=== PATIENT | male | born 1940 | race Caucasian/White ===

== ENCOUNTER → 2016-10-08 | Outpatient (CLI) | payer OTHER ==
[~2016-10-08] MED LIST: ASPEC81 PO; ASPI81TA21 PO; CLOP1TAB15 PO; CRG125 PO; DUTACAP PO; JAYLN PO; LISI-729 PO; LISI10TA PO; LPT40 PO; MULT-506 PO; NITR0.1S PO; NITRO SL; NTRGSL/4 UT; POLY1POW2 PO; POLY335019 PO; PROB1CAP54 PO
--- NOTE | 2016-10-08 10:18 | DIAGNOSTIC IMAGING REPORT ---
ULTRASOUND OF THE CAROTID ARTERIES CLINICAL HISTORY: Carotid artery stenosis. COMPARISON STUDY: Carotid artery ultrasound dated 10/02/2015. CT angiogram of the neck dated 02/08/2016. TECHNIQUE: Real-time, grayscale, and color Doppler sonography of the carotid arteries is performed. Images are reviewed in the transverse and longitudinal planes. FINDINGS: Blood pressure in the right arm measures 113/72 and blood pressure in the left arm measures 127/72. The right carotid arterial system and the left common carotid artery are widely patent and demonstrate antegrade flow. 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 There is moderate echogenic atherosclerotic plaque seen in the right carotid bulb. Normal doppler arterial waveforms are seen throughout. Velocity measurements are listed below. Common carotid peak systolic velocity (cm/sec): RIGHT: 94 LEFT: 69 ICA proximal peak systolic velocity (cm/sec): RIGHT: 71 LEFT: XX ICA mid peak systolic velocity (cm/sec): RIGHT: 88 LEFT: XX ICA distal peak systolic velocity (cm/sec): RIGHT: 78 LEFT: XX ICA/CC peak systolic ratio: RIGHT: 0.9 LEFT: XX Antegrade flow was shown in the vertebral arteries. The external carotid arteries are patent. Elevated velocities within the right external carotid artery suggest some degree of stenosis. IMPRESSION: 1. 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 2. There is no sonographic evidence of hemodynamically significant stenosis in the right carotid arterial system. 3. Antegrade flow is shown in the vertebral arteries. Electronically signed by: Yrn Obrien M.D. 10/08/2016 10:15 AM Dictated Date/Time: 10/08/2016 10:12 AM
== END | disposition home or self-care (01) ==
LOC: C.ULTR 09:27
PROVIDERS: ATTEND Physician Assistant
DX: I65.22 Occlusion and stenosis of left carotid artery (principal)

== ENCOUNTER → 2016-12-02 | Outpatient (CLI) | payer OTHER ==
[2016-12-02 12:15] LABS: BASO ABS # 0.06 K/uL (0-0.2); COMPLETE YES; HEMATOCRIT 41.2 % (42-52); IG% 0.5 %; LYMPH % 20.4 %; LYMPH ABS # 1.23 K/uL (1.2-3.4); MEAN CORPUSCULAR HEMOGLOBIN 33.4 pg (25-34); MEAN CORPUSCULAR HGB CONC 33.7 g/dl (32-36); MEAN PLATELET VOLUME 10.1 fL (7.4-10.4); MONO % 8.6 %; NEUT % 63.5 %; PLATELET COUNT 162 K/uL (130-400); RED BLOOD COUNT 4.16 M/uL (4.7-6.1); WHITE BLOOD COUNT 6.02 K/uL (4.8-10.8)
[2016-12-02 12:59] LABS: ALT/SGPT 30 U/L (12-78); BLOOD UREA NITROGEN 18 mg/dl (7-18); BUN/CREATININE RATIO 13.1 (10-20); CARBON DIOXIDE 27 mmol/L (21-32); CHLORIDE 104 mmol/L (98-107); CHOLESTEROL 145 mg/dl (0-200); GLUCOSE 90 mg/dl (70-99); POTASSIUM 4.6 mmol/L (3.5-5.1); SODIUM 139 mmol/L (136-145); TRIGLYCERIDES 98 mg/dl (0-150); VERY LOW DENSITY LIPOPROT CALC 20 mg/dl
[2016-12-02 13:02] LABS: ALKALINE PHOSPHATASE 53 U/L (45-117); AST/SGOT 20 U/L (15-37); CHOLESTEROL/HDL RATIO 3.5; HDL CHOLESTEROL 41 mg/dl; LDL CHOLESTEROL CALCULATED 84 mg/dl
[2016-12-02 13:14] LABS: CALCIUM 9.4 mg/dl (8.5-10.1)
== END ==
LOC: C.LABBFT 07:46
PROVIDERS: ATTEND Internal Medicine
DX: I25.10 Atherosclerotic heart disease of native coronary artery without angina pectoris (principal)

== ENCOUNTER 2017-01-30 20:52 | Inpatient (IN) | payer OTHER ==
[~2017-01-30] VITALS: Ht 177.8 cm; Wt 80.2 kg
[~2017-01-30 20:52] MED LIST changes: -ASPI81TA21 PO; -CLOP1TAB15 PO; -DUTACAP PO; -LISI-729 PO; -MULT-506 PO; -NITR0.1S PO; -NTRGSL/4 UT; -POLY335019 PO; -PROB1CAP54 PO
[2017-01-30] MEDS ORDERED: SODIUM CHLORIDE 0.9% 1000ML 1,000 ML IV STA (21:09)
[2017-01-30] MEDS ORDERED: SODIUM CHLORIDE 0.9% 1000ML 250 ML IV STA (21:09)
--- NOTE | 2017-01-30 21:14 | EMERGENCY ROOM VISIT NOTE ---
History Report prepared by Andie: Stephanie Moran Under the Supervision of: Dr. Royce Gurrola M.D. First contact with patient: 20:58 Chief Complaint: CHEST PAIN Stated Complaint: CHEST PAIN- HX OF MYOCARDIAL INF AND STROKE History of Present Illness The patient is a 77 year old male who presents to the Emergency Room with complaints of persistent midsternal chest pain that started approximately 2 hours [employer]. He is accompanied by his . He rates his discomfort as a 10/10. He took 1 Nitro prior to arrival, but states it has provided only minimal relief. His reports his blood pressure was elevated when she checked. The patient denies any shortness of breath or nausea. 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 He reports the Vicodin has not helped his pain, and his level of discomfort may be affecting his blood pressure. The patient has a defibrillator and pacemaker. He has a history of 2 previous GA's and a TIA. He denies his defibrillator firing recently. He takes daily Aspirin and Plavix. Source of History: patient, spouse/significant other () Onset: 2 hours [employer] Position: chest, other Symptom Intensity: 10/10 Timing: other (persistent) Modifying Factors (Relieving): other (Nitroglycerin) Associated Symptoms: No SOB, No nausea Review of Systems See HPI for pertinent positives & negatives. A total of 10 systems reviewed and were otherwise negative. Past Medical & Surgical Medical Problems: (1) Ischemic cardiomyopathy (2) Left Ventricular Thrombus Old medical records were reviewed. Nurse's notes were reviewed and I agree with. Family History No pertinent family history Social History Smoking Status: Never Smoker Alcohol Use: none Drug Use: none Marital Status: Housing Status: lives with family Occupation Status: retired, other Current/Historical Medications Scheduled Aspirin Enteric Coated (Ecotrin Or Generic), 81 MG PO DAILY Atorvastatin (Atorvastatin Calcium), 60 MG PO HS Carvedilol (Carvedilol), 12.5 MG PO BID Clopidogrel (Plavix), 75 MG PO QPM Dutasteride-Tamsulosin Hcl (Imelda), 1 CAP PO DAILY Lisinopril (Prinivil), 2.5 MG PO QAM Multivitamin (Multivitamin), 1 TAB PO DAILY Nitroglycerin (Nitrostat), 0.4 MG UT PRN Polyethylene Glycol 3350 (Miralax), 17 GM PO DAILY Probiotic Product (Acidophilus), 1 CAP PO DAILY Allergies Coded Allergies: No Known Allergies (Unverified , 01/30/17) Physical Exam Vital Signs Date Time Temp Pulse Resp B/P (MAP) Pulse Ox O2 Delivery O2 Flow Rate FiO2 01/30/17 23:41 68 18 114/71 88 Room Air 01/30/17 23:41 96 Nasal Cannula 2.0 01/30/17 22:23 141/80 01/30/17 22:22 83 14 01/30/17 22:11 76 01/30/17 21:52 76 19 91 01/30/17 21:41 92 Room Air 01/30/17 21:40 75 01/30/17 21:29 156/91 01/30/17 20:53 36.7 92 18 150/89 92 Room Air Physical Exam General: The patient is a non-ill appearing older male. Well developed, well nourished in no acute distress, breathing comfortably on room air. Normal speech HEENT: Normal cephalic atraumatic. Intact dressing around head from recent skin surgery. Pupils are equal round and reactive to light. Sclerae are anicteric. Extraocular movements are intact. Oropharynx is pink with moist mucous membranes. No swelling of the mouth lips or tongue. Neck: Supple with a midline trachea. No meningeal signs or stiffness, no JVD or bruits. No Stridor. Chest: Clear to auscultation bilaterally. No wheezes or rhonchi. No increased work of breathing. Heart: regular rate and rhythm. Abdomen: Soft nontender, nondistended without rebound guarding or rigidity. Extremities: No cyanosis clubbing or edema. No calf tenderness or assymetry Spine/Back. Non tender to palpation. No CVA tenderness Skin: Good turgor without rashes. Neurologic exam: Cranial nerves two through 12 are intact. Motor and sensation are intact and symmetrical throughout. Medical Decision & Procedures ER Provider Diagnostic Interpretation: Radiology results as stated below per my review and radiologist interpretation: CHEST ONE VIEW PORTABLE CLINICAL HISTORY: Atypical chest pain COMPARISON STUDY: 02/08/2016 FINDINGS: The cardiac and mediastinal contours remain stable. There is a left subclavian dual-chamber pacer/defibrillator. There is calcified right midlung zone granuloma. There is no failure. There is no focal pulmonary consolidation. There are no pleural effusions. IMPRESSION: No active disease in the chest. Electronically signed by: Lei Lebron M.D. 01/30/2017 9:26 PM Laboratory Results 01/30/17 21:30 Red Blood Count 4.10, Mean Corpuscular Volume 98.0, Mean Corpuscular Hemoglobin 33.4, Mean Corpuscular Hemoglobin Concent 34.1, Mean Platelet Volume 9.4, Neutrophils (%) (Auto) 69.2, Lymphocytes (%) (Auto) 19.5, Monocytes (%) (Auto) 7.1, Eosinophils (%) (Auto) 3.5, Basophils (%) (Auto) 0.4, Neutrophils # (Auto) 5.30, Lymphocytes # (Auto) 1.49, Monocytes # (Auto) 0.54, Eosinophils # (Auto) 0.27, Basophils # (Auto) 0.03 01/30/17 21:30 Test 01/30/17 21:30 01/30/17 21:48 White Blood Count 7.65 K/uL (4.8-10.8) Red Blood Count 4.10 M/uL (4.7-6.1) Hemoglobin 13.7 g/dL (14.0-18.0) Hematocrit 40.2 % (42-52) Mean Corpuscular Volume 98.0 fL (80-100) Mean Corpuscular Hemoglobin 33.4 pg (25-34) Mean Corpuscular Hemoglobin Concent 34.1 g/dl (32-36) Platelet Count 145 K/uL (130-400) Mean Platelet Volume 9.4 fL (7.4-10.4) Neutrophils (%) (Auto) 69.2 % Lymphocytes (%) (Auto) 19.5 % Monocytes (%) (Auto) 7.1 % Eosinophils (%) (Auto) 3.5 % Basophils (%) (Auto) 0.4 % Neutrophils # (Auto) 5.30 K/uL (1.4-6.5) Lymphocytes # (Auto) 1.49 K/uL (1.2-3.4) Monocytes # (Auto) 0.54 K/uL (0.11-0.59) Eosinophils # (Auto) 0.27 K/uL (0-0.5) Basophils # (Auto) 0.03 K/uL (0-0.2) RDW Standard Deviation 45.5 fL (36.4-46.3) RDW Coefficient of Variation 12.7 % (11.5-14.5) Immature Granulocyte % (Auto) 0.3 % Immature Granulocyte # (Auto) 0.02 K/uL (0.00-0.02) Prothrombin Time 10.9 SECONDS (9.0-12.0) Prothromb Time International Ratio 1.0 (0.9-1.1) Activated Partial Thromboplast Time 29.3 SECONDS (21.0-31.0) Partial Thromboplastin Ratio 1.1 Anion Gap 3.0 mmol/L (3-11) Est Creatinine Clear Calc Drug Dose 43.3 ml/min Estimated GFR () 51.7 Estimated GFR (Non- 44.6 BUN/Creatinine Ratio 14.6 (10-20) Calcium Level 8.9 mg/dl (8.5-10.1) Total Bilirubin 0.6 mg/dl (0.2-1) Direct Bilirubin 0.1 mg/dl (0-0.2) Aspartate Amino Transf (AST/SGOT) 54 U/L (15-37) Alanine Aminotransferase (ALT/SGPT) 44 U/L (12-78) Alkaline Phosphatase 56 U/L (45-117) Total Creatine Kinase 141 U/L (39-308) Creatine Kinase MB 2.3 ng/ml (0.5-3.6) Creatine Kinase MB Ratio 1.6 (0-3.0) Troponin I 0.026 ng/ml (0-0.045) Total Protein 7.5 gm/dl (6.4-8.2) Albumin 3.6 gm/dl (3.4-5.0) Lipase 4065 U/L (73-393) Bedside Troponin I < 0.030 ng/ml (0-0.045) UH-Udc-B-Type Natriuretic Peptide 711 pg/ml (0-1800) Laboratory studies as stated above per my review. Medications Administered Medications (Trade) Dose Ordered Sig/Mihaela Route Start Time Stop Time Status Last Admin Dose Admin Sodium Chloride 250 ml @ 999 mls/hr Q16M STAT IV 01/30/17 21:09 01/30/17 21:24 DC 01/30/17 21:54 999 MLS/HR Sodium Chloride 1,000 ml @ 100 mls/hr Q10H STAT IV 01/30/17 21:09 01/31/17 07:08 01/30/17 21:53 100 MLS/HR Ondansetron HCl (Zofran Inj) 4 mg NOW STAT IV 01/30/17 22:14 01/30/17 22:15 DC 01/30/17 22:32 4 MG Morphine Sulfate (MoRPHine SULFATE INJ) 2 mg NOW STAT IV 01/30/17 22:14 01/30/17 22:15 DC 01/30/17 22:32 2 MG Morphine Sulfate (MoRPHine SULFATE INJ) 2 mg NOW STAT IV 01/30/17 23:02 01/30/17 23:03 DC 01/30/17 23:08 2 MG ECG Indication: chest pain Rate (beats per minute): 83 Rhythm: normal sinus Findings: other (non-specific T wave abnormalities laterally) Change: no significant change (No significant change when compared to EKG of February 08, 2016) Change: 2nd EKG: Normal sinus rhythm, rate of 82, no acute ischemic changes, no ectopy. ED Course 2101: Past medical records reviewed. The patient was evaluated in room B6, and a complete history and physical examination were performed. 2108: NSS 1000 ml @ 100 mls/hr IV, NSS 250 ml @ 999 mls/hr IV. 2210: I reevaluated the patient. He states he had another episode of pain. I have ordered another EKG and some Zofran and pain medication. 2214: Morphine Sulfate 2 mg IV, Zofran 4 mg IV. 2302: Morphine Sulfate 2 mg IV. 2320: I reevaluated the patient. He is resting comfortably. I discussed his results and my recommendation he remain in the hospital for further evaluation and management and he verbalized complete understanding and agreement. 2340: I discussed the patients case with Dr. Schwarz, [facility] Hospitalist. The patient will be further evaluated. Medical Decision The differential diagnoses considered include ACS, arrhythmia, GERD, peptic ulcer disease and electrolyte or metabolic abnormalities. This patient comes in as described above he has lower chest/epigastric pain is not significantly reproducible he tender. It's been off-and-on and it sharp. He does have a history cardiac disease however has not had any symptoms like this with his cardiac issues in the past. He said he had back pain he does not have any back pain at present. He recently had melanoma surgery and is on Keflex and Vicodin which are the only new meds. IV access established, EKG was obtained. He tried nitroglycerin without much relief at home. EKG does not show any acute ischemic changes and no change compared to old. A second EKG was obtained and shows no chest change or progression of symptoms. His cardiac biomarkers are negative thus far. Chest x-ray was unremarkable is no free air. Lipase came back elevated in the 4000 range and apparently, he does have a pancreatitis. He does not drink his gallbladder from previously removed. It may be medication related. The patient did receive IV morphine twice while in the ER as well as IV Zofran and seems much more comfortable. He's also has ongoing pain from his surgery and his head for which she's been taking the Vicodin. The patient's does need to be admitted for further treatment and evaluation and bowel rest. He was gently hydrated in the ER and will be admitted to the [facility] physician group. Medication Reconcilliation Current Medication List: was personally reviewed by me Blood Pressure Screening Patient's blood pressure: Elevated blood pressure Blood pressure disposition: Elevated BP felt to be situational Consults Time Called: 2320 Consulting Physician: Dr. Schwarz, [facility] Hospitalist Returned Call: 2340 I discussed the patients case with Dr. Schwraz, [facility] Hospitalist. The patient will be further evaluated. Impression Primary Impression: Pancreatitis Additional Impressions: Precordial chest pain Epigastric abdominal pain Scribe Attestation The scribe's documentation has been prepared under my direction and personally reviewed by me in its entirety. I confirm that the note above accurately reflects all work, treatment, procedures, and medical decision making performed by me. Departure Information Dispostion Being Evaluated By Hospitalist Referrals Cleveland Blair M.D. (PCP) Patient Instructions My [facility] Problem Qualifiers
[2017-01-30] MEDS ORDERED: NITR0.4S76 PO (21:21)
[2017-01-30] MEDS ORDERED: DUTACAP PO (21:21)
[2017-01-30] MEDS ORDERED: CRG125 PO (21:21)
[2017-01-30] MEDS ORDERED: ASPI81TA21 PO (21:21)
[2017-01-30] MEDS ORDERED: LISI-729 PO (21:21)
[2017-01-30] MEDS ORDERED: POLY335019 PO (21:21)
[2017-01-30] MEDS ORDERED: CLOP1TAB15 PO (21:21)
[2017-01-30] MEDS ORDERED: NTRGSL/4 UT (21:22)
[2017-01-30] MEDS ORDERED: PROB1CAP54 PO (21:23)
[2017-01-30] MEDS ORDERED: MULT-506 PO (21:23)
--- NOTE | 2017-01-30 21:27 | DIAGNOSTIC IMAGING REPORT ---
CHEST ONE VIEW PORTABLE CLINICAL HISTORY: Atypical chest pain COMPARISON STUDY: 02/08/2016 FINDINGS: The cardiac and mediastinal contours remain stable. There is a left subclavian dual-chamber pacer/defibrillator. There is calcified right midlung zone granuloma. There is no failure. There is no focal pulmonary consolidation. There are no pleural effusions.[ IMPRESSION: No active disease in the chest. Electronically signed by: Lei Lebron M.D. 01/30/2017 9:26 PM Dictated Date/Time: 01/30/2017 9:25 PM
[2017-01-30 21:54] LABS: BASO % 0.4 %; BASO ABS # 0.03 K/uL (0-0.2); COMPLETE YES; EOS % 3.5 %; HEMATOCRIT 40.2 % (42-52); IG% 0.3 %; LYMPH % 19.5 %; LYMPH ABS # 1.49 K/uL (1.2-3.4); MEAN CORPUSCULAR HEMOGLOBIN 33.4 pg (25-34); MEAN CORPUSCULAR HGB CONC 34.1 g/dl (32-36); MEAN PLATELET VOLUME 9.4 fL (7.4-10.4); MONO % 7.1 %; NEUT % 69.2 %; PLATELET COUNT 145 K/uL (130-400); WHITE BLOOD COUNT 7.65 K/uL (4.8-10.8)
[2017-01-30 22:02] LABS: PARTIAL THROMBOPLASTIN RATIO 1.1; PROTHROMBIN TIME (PATIENT) 10.9 SECONDS (9.0-12.0)
[2017-01-30 22:07] LABS: BUN/CREATININE RATIO 14.6 (10-20); CALCIUM 8.9 mg/dl (8.5-10.1); CREATININE 1.5 mg/dl (0.60-1.40); POTASSIUM 4.2 mmol/L (3.5-5.1)
[2017-01-30 22:07] LABS: POINT OF CARE PRO-BNP 711 pg/ml (0-1800); POINT OF CARE TROPONIN I < 0.030 ng/ml (0-0.045)
[2017-01-30 22:13] LABS: CKMB/CK RATIO 1.6 (0-3.0)
[2017-01-30] MEDS ORDERED: MoRPHine SULFATE 2 MG/ML CARP IV STA ×2 (22:14→23:02)
[2017-01-30] MEDS ORDERED: ONDANSETRON INJ 2 MG/ML 2 ML VIAL IV STA (22:14)
[2017-01-31] MEDS ORDERED: MAGNESIUM HYDROXIDE SUSP 30 ML UDC PO PRN
[2017-01-31] MEDS ORDERED: ALUMINUM/MAGNESIUM/SIMETH (MAALOX MAX) 30 ML UDC PO PRN
[2017-01-31] MEDS ORDERED: ACETAMINOPHEN 325 MG TAB PO PRN
[2017-01-31] MEDS ORDERED: ONDANSETRON INJ 2 MG/ML 2 ML VIAL IV PRN
--- NOTE | 2017-01-31 00:28 | History and Physical ---
History & Physical Date & Time of Service: Jan 31, 2017 at 00:26 Chief Complaint: Chest Pain- Hx Of Myocardial Inf And Stroke Primary Care Physician: Cleveland Blair M.D. History of Present Illness Source: patient, family Mr Guerin is a 77 yo M with hx of FL and stroke, who has a pacemaker/ICD, who presents with chest pain since this evening. He reports yesterday he had a melanoma on his forehead removed, and the pain has been severe. He had Vicodin but it did not do much. He reports the pain came on at rest. It is in the upper abdomen, does not radiate, sharp, and worse when leaning forwards. It is also associated with abdominal swelling which is new. He denies any pain in the rest of his abdomen. He denies any changes to his bowels or urine. Past Medical/Surgical History PMHx: Ischemic cardiomyopathy Left Ventricular Thrombus BPH Hyperlipidemia PSHx: ICD/Debrillator placement Melanoma removal Cholecystectomy in 1991 Family History No pertinent family history Social History Smoking Status: Never Smoker Drug Use: none Marital Status: Housing status: lives with family Occupational Status: retired, other Immunizations History of Influenza Vaccine: No History of Tetanus Vaccine?: No History of Pneumococcal: No History of Hepatitis B Vaccine: No Allergies Coded Allergies: No Known Allergies (Unverified , 01/30/17) Home Medications Scheduled Aspirin Enteric Coated (Ecotrin Or Generic), 81 MG PO DAILY Atorvastatin (Atorvastatin Calcium), 60 MG PO HS Carvedilol (Carvedilol), 12.5 MG PO BID Clopidogrel (Plavix), 75 MG PO QPM Dutasteride-Tamsulosin Hcl (Imelda), 1 CAP PO DAILY Lisinopril (Prinivil), 2.5 MG PO QAM Multivitamin (Multivitamin), 1 TAB PO DAILY Nitroglycerin (Nitrostat), 0.4 MG UT PRN Polyethylene Glycol 3350 (Miralax), 17 GM PO DAILY Probiotic Product (Acidophilus), 1 CAP PO DAILY Review of Systems See HPI for pertinent positives & negatives. A total of 10 systems reviewed and were otherwise negative. Physical Exam Vital Signs Date Time Temp Pulse Resp B/P (MAP) Pulse Ox O2 Delivery O2 Flow Rate FiO2 01/30/17 23:41 68 18 114/71 88 Room Air 01/30/17 23:41 96 Nasal Cannula 2.0 8/3/17 22:23 141/80 01/30/17 22:22 83 14 01/30/17 22:11 76 01/30/17 21:52 76 19 91 01/30/17 21:41 92 Room Air 01/30/17 21:40 75 01/30/17 21:29 156/91 01/30/17 20:53 36.7 92 18 150/89 92 Room Air General Appearance: WD/WN, no apparent distress Head: normocephalic, atraumatic Eyes: normal inspection, PERRL ENT: hearing grossly normal Neck: supple, thyroid normal Respiratory/Chest: lungs clear, normal breath sounds Cardiovascular: regular rate, rhythm, no murmur Abdomen/GI: soft, + distended, + guarding (mild epigastric guarding) Back: no CVA tenderness, no muscle spasm Extremities/Musculoskelatal: no calf tenderness, no pedal edema Neurologic/Psych: alert, normal mood/affect, oriented x 3 Skin: no rash Diagnostics Laboratory Results Results Past 24 Hours Test 01/30/17 21:09 01/30/17 21:30 01/30/17 21:48 01/30/17 23:58 Range/Units Creatine Kinase MB Ratio 1.6 0-3.0 White Blood Count 7.65 4.8-10.8 K/uL Red Blood Count 4.10 4.7-6.1 M/uL Hemoglobin 13.7 14.0-18.0 g/dL Hematocrit 40.2 42-52 % Mean Corpuscular Volume 98.0 80-100 fL Mean Corpuscular Hemoglobin 33.4 25-34 pg Mean Corpuscular Hemoglobin Concent 34.1 32-36 g/dl Platelet Count 145 130-400 K/uL Mean Platelet Volume 9.4 7.4-10.4 fL Neutrophils (%) (Auto) 69.2 % Lymphocytes (%) (Auto) 19.5 % Monocytes (%) (Auto) 7.1 % Eosinophils (%) (Auto) 3.5 % Basophils (%) (Auto) 0.4 % Neutrophils # (Auto) 5.30 1.4-6.5 K/uL Lymphocytes # (Auto) 1.49 1.2-3.4 K/uL Monocytes # (Auto) 0.54 0.11-0.59 K/uL Eosinophils # (Auto) 0.27 0-0.5 K/uL Basophils # (Auto) 0.03 0-0.2 K/uL RDW Standard Deviation 45.5 36.4-46.3 fL RDW Coefficient of Variation 12.7 11.5-14.5 % Immature Granulocyte % (Auto) 0.3 % Immature Granulocyte # (Auto) 0.02 0.00-0.02 K/uL Prothrombin Time 10.9 9.0-12.0 SECONDS Prothromb Time International Ratio 1.0 0.9-1.1 Activated Partial Thromboplast Time 29.3 21.0-31.0 SECONDS Partial Thromboplastin Ratio 1.1 Sodium Level 140 136-145 mmol/L Potassium Level 4.2 3.5-5.1 mmol/L Chloride Level 107 98-107 mmol/L Carbon Dioxide Level 30 21-32 mmol/L Anion Gap 3.0 3-11 mmol/L Blood Urea Nitrogen 22 7-18 mg/dl Creatinine 1.50 0.60-1.40 mg/dl Est Creatinine Clear Calc Drug Dose 43.3 ml/min Estimated GFR () 51.7 Estimated GFR (Non- 44.6 BUN/Creatinine Ratio 14.6 10-20 Random Glucose 104 70-99 mg/dl Calcium Level 8.9 8.5-10.1 mg/dl Total Bilirubin 0.6 0.2-1 mg/dl Direct Bilirubin 0.1 0-0.2 mg/dl Aspartate Amino Transf (AST/SGOT) 54 15-37 U/L Alanine Aminotransferase (ALT/SGPT) 44 12-78 U/L Alkaline Phosphatase 56 45-117 U/L Total Creatine Kinase 141 39-308 U/L Creatine Kinase MB 2.3 0.5-3.6 ng/ml Troponin I 0.026 0-0.045 ng/ml Total Protein 7.5 6.4-8.2 gm/dl Albumin 3.6 3.4-5.0 gm/dl Lipase 4065 73-393 U/L Bedside Troponin I < 0.030 0-0.045 ng/ml BX-Cgb-P-Type Natriuretic Peptide 711 0-1800 pg/ml Diagnostic Radiology IMPRESSION: No active disease in the chest. EKG Sinus rhythm with Premature atrial complexes Possible Left atrial enlargement Inferior infarct (cited on or before 23-SEP-2010) Anterior infarct (cited on or before 23-SEP-2010) ST & T wave abnormality, consider lateral ischemia Impression Assessment and Plan 77 yo M found to have acute pancreatitis - is s/p cholecystectomy, does not drink - will investigate for other causes Acute pancreatitis - Will obtain CT scan w/out contrast to evaluate for necrosis - NPO with IV fluids - Trend lipase Abdominal distention - Will evaluate on CT scan - No evidence of infection, ruptured ulcer, or other arterial bleed as he is hemodynamically stable and not actively bleeding - Continue to monitor CKD stage III, Cr 1.5, baseline 1.3 - IV fluids overnight - Continue to monitor Hyperlipidemia - Continue Lipitor Ischemic Cardiomyopathy s/p ICD - Continue Lisinopril, Beta sherrie, Statin Hx of [place] - Continue dual anti platelet therapy VTE: Heparin DISPO: Med/Surg CODE STATUS: Full Resident Physician Supervision Note: I was present with Dr. Schwarz during the history and exam. I discussed the case with the resident and agree with the findings and plan as documented in the note. Any exceptions or clarifications are listed here: 77 y/o M Hx CAD, CKD, HPL - presenting with sever epigastric or lower chest pain - initial workup is more consistent pancreatitis than with cardio etiology OE AAO x 3 S1,2 R CTAB NT, ND No CCE P: Will treat for presumed pancreatitis based on pain and elevated lipase - CT bad is pending R/O FL as he has risk factors Above discussed with pt, , ER attending Documented By: Dieter Nelson VTE Prophylaxis VTE Risk Assessment Done? Y/N: Yes Risk Level: Moderate Resident Tracking Resident Involvement: Resident Care Provided Care Provided: Adult Hospital Medicine
[2017-01-31 01:15] VITALS: BP 117/84; PULSE 72; TEMP 36.7; O2SAT 94; Ht 177.8 cm; Wt 80.2 kg
[2017-01-31] MEDS ORDERED: POLYETHYLENE (MIRALAX) 17 GM PACK PO PRN (02:00)
[2017-01-31] MEDS: SODIUM CHLOR 0.45% + 20MEQ KCL 1,000 ML IV SCH ×3 (02:04→21:28)
[2017-01-31 02:09] VITALS: BP 117/84; PULSE 72; TEMP 36.7; O2SAT 94
[2017-01-31] MEDS: MoRPHine SULFATE 2 MG/ML CARP IV PRN ×6 (02:56→22:26)
--- NOTE | 2017-01-31 07:05 | DIAGNOSTIC IMAGING REPORT ---
ABD/PELVIS NO IV OR ORAL CONT CLINICAL HISTORY: 77 years-old Male presenting with pancreatitis abd distention. TECHNIQUE: Multidetector CT of the abdomen and pelvis was performed without the use of intravenous contrast. IV contrast: None. A dose lowering technique was used consistent with the principles of ALARA (as low as reasonably achievable). COMPARISON: 01/08/2012. CT DOSE (mGy.cm): The estimated cumulative dose is 417.06 mGy.cm. FINDINGS: [employer] topogram: Right atrial and right ventricular leads from an implanted cardiac defibrillator noted. Lung bases: Minimal dependent bandlike opacities at the lung bases, likely atelectasis or scarring. Capillary muscle calcification. Coronary artery and aortic valve calcification noted in addition to the defibrillator leads. Trace pericardial effusion. No pleural effusion. Liver: Normal morphology. Normal density. Several hypodensities noted unchanged in size and distribution from prior exam, indeterminate but likely cysts or hamartomas. Biliary: Allowing for noncontrast technique, evidence of intrahepatic and extrahepatic biliary ductal dilatation to a similar degree as on prior exam, likely a reservoir effect in the post cholecystectomy state. Gallbladder surgically absent. Pancreas: Mild parenchymal atrophy. Spleen: Normal. Adrenal glands: Nodularity of the left adrenal gland unchanged. Right adrenal gland normal. Kidneys and ureters: No nephrolithiasis. Ill-defined hypodensity in the posterior interpolar region of the right kidney, similar in distribution to prior exam, indeterminate but likely cyst. No hydronephrosis. Normal ureters. Gastrointestinal tract: Normal appendix. No bowel obstruction. Peritoneal cavity: No free fluid or intraperitoneal gas. Bladder: Mild circumferential bladder wall thickening, decreased from prior. Pelvic organs: Prostate and seminal vesicles normal. Calcification could suggest benign prostatic hyperplasia. Suggestion of a transurethral resection of the prostate defect. Vasculature: Atherosclerosis of the normal caliber abdominal aorta. Lymph nodes: No enlarged lymph nodes in the abdomen or pelvis. Abdominal wall: Normal. Musculoskeletal: Degenerative changes of the spine. Osteopenia. IMPRESSION: 1. No evidence of peripancreatic inflammatory change to suggest pancreatitis. This does not exclude the diagnosis. 2. No evidence of acute intra-abdominal pathology. No bowel obstruction. Electronically signed by: Ben Srinivasan M.D. 01/31/2017 7:03 AM Dictated Date/Time: 01/31/2017 6:56 AM
[2017-01-31 07:14] VITALS: BP 104/64; PULSE 64; TEMP 36.6; O2SAT 97
[2017-01-31] MEDS: POLYETHYLENE (MIRALAX) 17 GM PACK PO SCH (07:31)
[2017-01-31] MEDS: ASPIRIN 81 MG ECTAB PO SCH (07:37)
[2017-01-31] MEDS: CARVEDILOL 12.5 MG TAB PO SCH ×2 (07:37→21:20)
[2017-01-31] MEDS: MULTIVITAMIN TAB PO SCH (07:37)
[2017-01-31] MEDS: LISINOPRIL 2.5 MG TAB PO SCH (07:39)
[2017-01-31] MEDS: HEPARIN SOD 5000 UNIT/0.5 ML CARP SQ SCH ×2 (07:45→21:26)
--- NOTE | 2017-01-31 09:47 | Family Medicine Progress Note ---
Progress Note Date of Service Jan 31, 2017. Subjective Pt evaluation today including: conversation w/ patient, conversation w/ family , physical exam, chart review, lab review The patient was seen and examined at bedside. No acute overnight events. Pt received 2mg IV morphine at 7am that has completed relieved his pain. Last morphine dose was 2mg IV at 2am. Patient is resting comfortably in bed. Denies having any pain. NPO at present. Reports that this pain is significantly different that his chest pain for his previous two MIs. (one DE was asymptomatic, another DE had crushing back pain - worst pain of his life) Plan of care was described to the patient and all questions were answered. Constitutional: No fever, No chills, No sweats, No weight loss Eyes: No worsening of vision ENT: No hearing loss Respiratory: No cough, No sputum, No wheezing, No shortness of breath, No dyspnea on exertion Cardiovascular: No chest pain Abdomen: No pain, No nausea, No vomiting, No diarrhea Male : No dysuria Additional Comments: ROS as above with the addition of no CVA tenderness as well. 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 TECHNIQUE: Multidetector CT of the abdomen and pelvis was performed without the use of intravenous contrast. IV contrast: None. A dose lowering technique was used consistent with the principles of ALARA (as low as reasonably achievable). COMPARISON: 01/08/2012. CT DOSE (mGy.cm): The estimated cumulative dose is 417.06 mGy.cm. 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 Lung bases: Minimal dependent bandlike opacities at the lung bases, likely atelectasis or scarring. Capillary muscle calcification. Coronary artery and aortic valve calcification noted in addition to the defibrillator leads. Trace pericardial effusion. No pleural effusion. Liver: Normal morphology. Normal density. Several hypodensities noted unchanged in size and distribution from prior exam, indeterminate but likely cysts or hamartomas. Biliary: Allowing for noncontrast technique, evidence of intrahepatic and extrahepatic biliary ductal dilatation to a similar degree as on prior exam, likely a reservoir effect in the post cholecystectomy state. Gallbladder surgically absent. Pancreas: Mild parenchymal atrophy. Spleen: Normal. Adrenal glands: Nodularity of the left adrenal gland unchanged. Right adrenal gland normal. Kidneys and ureters: No nephrolithiasis. Ill-defined hypodensity in the posterior interpolar region of the right kidney, similar in distribution to prior exam, indeterminate but likely cyst. No hydronephrosis. Normal ureters. Gastrointestinal tract: Normal appendix. No bowel obstruction. Peritoneal cavity: No free fluid or intraperitoneal gas. Bladder: Mild circumferential bladder wall thickening, decreased from prior. Pelvic organs: Prostate and seminal vesicles normal. Calcification could suggest benign prostatic hyperplasia. Suggestion of a transurethral resection of the prostate defect. Vasculature: Atherosclerosis of the normal caliber abdominal aorta. Lymph nodes: No enlarged lymph nodes in the abdomen or pelvis. Abdominal wall: Normal. Musculoskeletal: Degenerative changes of the spine. Osteopenia. IMPRESSION: 1. No evidence of peripancreatic inflammatory change to suggest pancreatitis. This does not exclude the diagnosis. 2. No evidence of acute intra-abdominal pathology. No bowel obstruction. Assessment and Plan 77M found to have acute pancreatitis - is s/p cholecystectomy, does not drink, has a 50pack year history of smoking tobacco. CT Scan of abdo w/o IV contrast was grossly normal. Lipase is downtrending. Physical exam is only remarkable for non tender but distended abdomen. Will progress diet and continue to trend Lipase. Acute pancreatitis - unclear etiology - Abdominal Pain well controlled with 2mg IV morphine. - Lipase is downtrending 4000-->2000. - CT Scan abdo and pelvis: 1. No evidence of peripancreatic inflammatory change to suggest pancreatitis. This does not exclude the diagnosis. 2. No evidence of acute intra-abdominal pathology. No bowel obstruction. - Since pain free, we will progress diet as tolerated. - Supplement diet with 100mls/hr IVF 1/2 NSS + 20meq KCl. - Continue to trend lipase. - Abd Distension slightly improved but still distended. Good bowel movement. no sign of ileus. - will advance diet to clears and follow. CKD stage III, Cr 1.5, baseline 1.3 - Eating and drinking + IVF supplementation. Hx of DE w Ischemic Cardiomyopathy s/p ICD - Continue Lisinopril 2.5 MG PO QAM - Continue Carvedilol (Carvedilol), 12.5 MG PO BID - Continue Atorvastatin 60mg QHS - Continue ASA 81mg daily - Continue Plavix 75mg QPM. BPH - Continue Dutasteride-Tamsulosin Hcl, 1 CAP PO DAILY DVT Proph: Heparin SQ BID DISPO: Med/Surg CODE STATUS: Full Resident Involvement: Resident Care Provided Care Provided: Adult Hospital Medicine Reviewed: Pt Seen/Exam by Me History abd pain resolved no nausea Constitutional: denies: fever Respiratory: negative: short of breath Cardiovascular: denies chest pain Gastrointestinal/Abdominal: negative: abdominal pain General Appearance: no apparent distress Respiratory: lungs clear, no respiratory distress Cardiovascular: regular rate, rhythm Gastrointestinal: normal bowel sounds, non tender, soft Neurologic/Psychiatric: alert, oriented x 3 Assessment/Plan Resident Physician Supervision Note: I was present with Dr. Marie in bedside. I verified the sin history and physical, reviewed labs and image studies, discussed the case with the resident and agree with the findings and care plan.
[2017-01-31 13:38] LABS: LYME DISEASE AB IGG NEG (NEG)
[2017-01-31 13:39] LABS: LYME DISEASE AB IGM NEG (NEG)
[2017-01-31 14:50] VITALS: BP 117/71; PULSE 74; TEMP 36.5; O2SAT 93
[2017-01-31] MEDS ORDERED: DUTASTERIDE-TAMSULOSIN HCL 1 CAP CAP PO SCH (21:00)
[2017-01-31] MEDS ORDERED: ATORVASTATIN 20 MG TAB PO SCH (21:00)
[2017-01-31] MEDS ORDERED: CLOPIDOGREL BISULFATE 75 MG TAB PO SCH (21:00)
[2017-01-31 23:50] VITALS: BP 114/74; PULSE 81; TEMP 36.8; O2SAT 94
[2017-02-01] MEDS: MoRPHine SULFATE 2 MG/ML CARP IV PRN (05:59)
[2017-02-01 07:05] VITALS: BP 130/76; PULSE 76; TEMP 36.8; O2SAT 93
[2017-02-01 07:39] LABS: BASO % 0.6 %; BASO ABS # 0.03 K/uL (0-0.2); COMPLETE YES; EOS % 4.3 %; HEMATOCRIT 38.2 % (42-52); IG% 0.2 %; LYMPH % 15.9 %; LYMPH ABS # 0.82 K/uL (1.2-3.4); MEAN CELL VOLUME 99.2 fL (80-100); MEAN CORPUSCULAR HEMOGLOBIN 32.5 pg (25-34); MEAN CORPUSCULAR HGB CONC 32.7 g/dl (32-36); MEAN PLATELET VOLUME 9.7 fL (7.4-10.4); MONO % 8.3 %; NEUT % 70.7 %; PLATELET COUNT 137 K/uL (130-400); RED BLOOD COUNT 3.85 M/uL (4.7-6.1); WHITE BLOOD COUNT 5.17 K/uL (4.8-10.8)
[2017-02-01 08:00] VITALS: O2SAT 93
[2017-02-01] MEDS: POLYETHYLENE (MIRALAX) 17 GM PACK PO SCH (08:04)
[2017-02-01] MEDS: CARVEDILOL 12.5 MG TAB PO SCH (08:04)
[2017-02-01] MEDS: MULTIVITAMIN TAB PO SCH (08:04)
[2017-02-01] MEDS: ASPIRIN 81 MG ECTAB PO SCH (08:04)
[2017-02-01] MEDS: LISINOPRIL 2.5 MG TAB PO SCH (08:04)
[2017-02-01] MEDS: HEPARIN SOD 5000 UNIT/0.5 ML CARP SQ SCH (08:09)
[2017-02-01 08:18] LABS: ALB/GLOB RATIO 0.9 (0.9-2); BUN/CREATININE RATIO 12.1 (10-20); CREATININE 1.1 mg/dl (0.60-1.40); POTASSIUM 4.6 mmol/L (3.5-5.1)
[2017-02-01] MEDS ORDERED: DUTASTERIDE-TAMSULOSIN HCL 1 CAP CAP PO SCH (09:00)
--- NOTE | 2017-02-01 09:34 | Family Medicine Progress Note ---
Progress Note Date of Service Feb 01, 2017. Subjective Pt evaluation today including: conversation w/ patient, conversation w/ family , physical exam, chart review, lab review, review of studies, review of inpatient medication list Voiding: no voiding problems, no incontinence 77 yo male hospital day 3 treated for acute pancreatitis. -Pt says that the epigastric pain has gotten better over the course of the hospitalization -Today the patient denies any abdominal pain -Pt reports a normal appetite. Pt's diet was advanced to a clear liquid diet today. -Pt describes a normal bowel movement this morning. -Pt denies SOB, chest pain, N/V/D, fevers or chills -Pt was started on statin in 2009 and has not had any side effects. No recent increases in dose. Constitutional: No fever, No chills, No sweats, No fatigue Respiratory: No cough, No sputum, No wheezing, No shortness of breath Cardiovascular: No chest pain, No palpitations Abdomen: No pain, No nausea, No vomiting, No diarrhea Male : No dysuria Objective Physical Exam General Appearance: WD/WN, no apparent distress Respiratory/Chest: chest non-tender, lungs clear, normal breath sounds, no respiratory distress, no accessory muscle use Cardiovascular: regular rate, rhythm, no edema, no gallop, no murmur Abdomen: non tender, soft, + abnormal bowel sounds (increased bowel sounds), + distended Skin: normal color, warm/dry, no rash
[2017-02-01 14:53] VITALS: BP 148/92; PULSE 82; TEMP 36.8; O2SAT 95
--- NOTE | 2017-02-01 17:35 | Discharge Instructions ---
Discharge Instructions Date of Service Feb 01, 2017. Admission Reason for Admission: Pancreatitis, Precordial Chest Pain Discharge Discharge Diagnosis / Problem: Pancreatitis Discharge Goals Goal(s): Diagnostic testing, Therapeutic intervention Activity Recommendations Activity Limitations: resume your previous activity . Instructions / Follow-Up Instructions / Follow-Up Pancreatitis--No evidence of gallstones, triglycerides were normal, no alcohol use. This was a random occurrence (idiopathic). It is unlikely to happen again, but if it were, there are numerous of rare cause to determine, but right now it appears to not be the case. follow a low-fat diet for the next couple weeks, slowly resume normal diet. Avoid alcohol entirely. Current Hospital Diet Patient's current hospital diet: Low Fat Diet Discharge Diet Recommended Diet: Low Fat Diet Pending Studies Studies pending at discharge: no Laboratory Results Lipid Panel Test 12/02/16 07:48 01/30/17 21:30 Range/Units Triglycerides Level 98 114 0-150 mg/dl Cholesterol Level 145 0-200 mg/dl HDL Cholesterol 41 mg/dl Cholesterol/HDL Ratio 3.5 LDL Cholesterol, Calculated 84 mg/dl Medical Emergencies . Who to Call and When: Medical Emergencies: If at any time you feel your situation is an emergency, please call 911 immediately. . Non-Emergent Contact Non-Emergency issues call your: Primary Care Provider . . "Provider Documentation" section prepared by Fernando Haddad. . VTE Core Measure Inpt VTE Proph given/why not?: Unfractionated heparin SQ
[2017-02-01 17:45] VITALS: BP 148/92; PULSE 82; TEMP 36.8; O2SAT 95
--- NOTE | 2017-02-01 17:45 | Discharge Summary ---
Discharge Summary Date of Service Feb 01, 2017. (Fernando Haddad M.D.) Discharge Summary Admission Date: Jan 31, 2017 at 00:20 Discharge Date: Feb 01, 2017 Discharge Disposition: Home Principal Diagnosis: Pancreatitis Immunizations: Have You Had Influenza Vaccine: No History of Tetanus Vaccine?: No History of Pneumococcal: No History of Hepatitis B Vaccine: No Procedures: ABD/PELVIS NO IV OR ORAL CONT CLINICAL HISTORY: 77 years-old Male presenting with pancreatitis abd distention. TECHNIQUE: Multidetector CT of the abdomen and pelvis was performed without the use of intravenous contrast. IV contrast: None. A dose lowering technique was used consistent with the principles of ALARA (as low as reasonably achievable). COMPARISON: 01/08/2012. CT DOSE (mGy.cm): The estimated cumulative dose is 417.06 mGy.cm. 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 Lung bases: Minimal dependent bandlike opacities at the lung bases, likely atelectasis or scarring. Capillary muscle calcification. Coronary artery and aortic valve calcification noted in addition to the defibrillator leads. Trace pericardial effusion. No pleural effusion. Liver: Normal morphology. Normal density. Several hypodensities noted unchanged in size and distribution from prior exam, indeterminate but likely cysts or hamartomas. Biliary: Allowing for noncontrast technique, evidence of intrahepatic and extrahepatic biliary ductal dilatation to a similar degree as on prior exam, likely a reservoir effect in the post cholecystectomy state. Gallbladder surgically absent. Pancreas: Mild parenchymal atrophy. Spleen: Normal. Adrenal glands: Nodularity of the left adrenal gland unchanged. Right adrenal gland normal. Kidneys and ureters: No nephrolithiasis. Ill-defined hypodensity in the posterior interpolar region of the right kidney, similar in distribution to prior exam, indeterminate but likely cyst. No hydronephrosis. Normal ureters. Gastrointestinal tract: Normal appendix. No bowel obstruction. Peritoneal cavity: No free fluid or intraperitoneal gas. Bladder: Mild circumferential bladder wall thickening, decreased from prior. Pelvic organs: Prostate and seminal vesicles normal. Calcification could suggest benign prostatic hyperplasia. Suggestion of a transurethral resection of the prostate defect. Vasculature: Atherosclerosis of the normal caliber abdominal aorta. Lymph nodes: No enlarged lymph nodes in the abdomen or pelvis. Abdominal wall: Normal. Musculoskeletal: Degenerative changes of the spine. Osteopenia. IMPRESSION: 1. No evidence of peripancreatic inflammatory change to suggest pancreatitis. This does not exclude the diagnosis. 2. No evidence of acute intra-abdominal pathology. No bowel obstruction. Electronically signed by: Ben Srinivasan M.D. 01/31/2017 7:03 AM Item Value Date Time Lipase 4065 U/L H 01/30/172129 Lipase 2040 U/L H 01/31/17 0651 Lipase 207 U/L 02/01/17 0712 Triglycerides Level 114 mg/dl 01/30/172129 Aspartate Amino Transf (AST/SGOT) 54 U/L H 01/30/172129 Aspartate Amino Transf (AST/SGOT) 205 U/L H 02/01/17 0712 Alanine Aminotransferase (ALT/SGPT) 306 U/L H 02/01/17 0712 Last Resulted CBC 02/01/17 07:12 Red Blood Count 3.85, Mean Corpuscular Volume 99.2, Mean Corpuscular Hemoglobin 32.5, Mean Corpuscular Hemoglobin Concent 32.7, Mean Platelet Volume 9.7, Neutrophils (%) (Auto) 70.7, Lymphocytes (%) (Auto) 15.9, Monocytes (%) (Auto) 8.3, Eosinophils (%) (Auto) 4.3, Basophils (%) (Auto) 0.6, Neutrophils # (Auto) 3.66, Lymphocytes # (Auto) 0.82, Monocytes # (Auto) 0.43, Eosinophils # (Auto) 0.22, Basophils # (Auto) 0.03 Last Resulted BMP 02/01/17 07:12 (Fernando Haddad M.D.) Principal Diagnosis: acute (idiopathic) pancreatitis (Melchor Bradshaw D.O.) Medication Reconciliation Continued Medications: Aspirin Enteric Coated (Ecotrin Or Generic) 81 Mg Tab 81 MG PO DAILY, TAB Atorvastatin (Atorvastatin Calcium) 40 Mg Tab 60 MG PO HS Carvedilol (Carvedilol) 12.5 Mg Tab 12.5 MG PO BID Clopidogrel (Plavix) 75 Mg Tab 75 MG PO QPM, TAB Dutasteride-Tamsulosin Hcl (Imelda) 1 Cap Cap 1 CAP PO DAILY, CAP 11 Refills Lisinopril (Prinivil) 5 Mg Tab 2.5 MG PO QAM, TAB Multivitamin (Multivitamin) Tab 1 TAB PO DAILY, TAB Nitroglycerin (Nitrostat) 0.4 Mg Tab 0.4 MG UT PRN, BTL Polyethylene Glycol 3350 (Miralax) 1 Pow Pow 17 GM PO DAILY, GM Probiotic Product (Acidophilus) 1 Cap Cap 1 CAP PO DAILY Discharge Exam Review of Systems: Constitutional: No fever, No chills, No sweats Respiratory: No cough, No sputum Cardiovascular: No chest pain, No orthopnea, No edema Abdomen: No pain, No nausea, No vomiting, No diarrhea Physical Exam: General Appearance: WD/WN, no apparent distress Respiratory/Chest: chest non-tender, lungs clear, normal breath sounds, no respiratory distress Cardiovascular: regular rate, rhythm Abdomen / GI: normal bowel sounds, non tender, no organomegaly Skin: normal color, warm/dry, no rash (Fernando Haddad M.D.) Hospital Course 77 yo M h/o RI and stroke, pacemaker/ICD -Presented to the ED with epigastric pain on the evening of 01/30/2017. -Pain was described as sharp and crushing and associated with abdominal swelling. Pt described his pain was worse with leaning forward. He said that the pain was vastly different from his previous MIs. -Pts had normal cardiac enzymes, but was found to have a Lipase of 4000. Pt had a cholecystectomy in the past, denied alcohol use and was not found to have hypertriglyceridemia. -Pt was admitted and treated for Acute Pancreatitis. Tx: NPO, IV fluids, pain controlled. CT Scan abdo and pelvis: 1. No evidence of peripancreatic inflammatory change to suggest pancreatitis. This does not exclude the diagnosis. 2. No evidence of acute intra-abdominal pathology. No bowel obstruction. -Pt abdominal pain gradually receded over the course of the stay. -Lipase trended down: 01/30: 4000, 01/31: 2000, 02/01: 200 - Pt reported no pain on 02/01/2017 and tolerated a liquid diet. Pt also was having normal bowel movements. No nausea, vomiting or diarrhea. -Pt was discharged after tolerating a low-fat diet on 02/01/2017. -Pts AST and ALT were elevated at discharge. Pt instructed to have CMP drawn on Friday and to follow up with PCP. Pt will follow up with PCP, Dr. Blair next week. Pt has been instructed to immediately go to the ED if pain returns or experiences fevers, nausea or vomiting. -At this point, pts pancreatitis is considered idiopathic. Pt denied alcohol use, had a cholecystectomy and was without high triglycerides. -Further causes should be investigated if pancreatitis reoccurs. Total Time Spent: Less than 30 minutes This includes examination of the patient, discharge planning, medication reconciliation, and communication with other providers. (Fernando Haddad M.D.) Resident Physician Supervision Note: I interviewed and examined the patient. Discussed with Dr. Haddad and agree with findings and plan as documented in the note. Any exceptions or clarifications are listed here: None Documented By: Melchor Bradshaw feeling better eating well wants to go home. all other ROS otherwise negative except for as above vitals noted nad breathing unlabored abd soft nd nt no guarding/rigidity acute (idiopathic) pancreatitis -prior GB disease and abrupt improvement begs the question of microlithiasis, but given rapid recovery further invasive w/u such as EUS would be low yield and likely higher risk of harm than benefit -no EtOH, triglycerides OK -late rise in LFTs noted, but no sx and no exam findings - seems more c/w late rise just due to overall situation - stable for home, outpt labs 02/03 (CMP) and warning signs outlined (but again he feels good, eating well, examines very reassuring) -if recurrent then would need GI w/u for occult biliary disease, odd med effect , or autoimmune, but none seem likely -stable for home Total Time Spent: Less than 30 minutes (Melchor Bradshaw, D.Foster.) Discharge Instructions Please refer to the electronic Patient Visit Report (Discharge Instructions) for additional information. (Fernando Haddad M.D.) Additional Copies To [place] Blair M.D.
== END 2017-02-01 18:37 | disposition home or self-care (01) | DRG 440 ==
LOC: C.EDB 20:54 → C.MS2W 01-31 00:20 → ENRESERV 01-31 00:42
PROVIDERS: ADMIT Internal Medicine; ATTEND Family Medicine
DX: K85.00 Idiopathic acute pancreatitis without necrosis or infection (principal); N18.3 Chronic kidney disease, stage 3 (moderate); E78.5 Hyperlipidemia, unspecified; N40.0 Benign prostatic hyperplasia without lower urinary tract symptoms; Z95.810 Presence of automatic (implantable) cardiac defibrillator; I25.2 Old myocardial infarction; Z86.73 Personal history of transient ischemic attack (TIA), and cerebral infarction without residual deficits; Z85.820 Personal history of malignant melanoma of skin; Z90.49 Acquired absence of other specified parts of digestive tract; Z79.02 Long term (current) use of antithrombotics/antiplatelets; Z79.82 Long term (current) use of aspirin; Z79.899 Other long term (current) drug therapy

== ENCOUNTER → 2017-02-03 | Outpatient (CLI) | payer OTHER ==
[~2017-02-03] MED LIST changes: -ASPEC81 PO; +ASPI81TA21 PO; +CLOP1TAB15 PO; +DUTACAP PO; -JAYLN PO; +LISI-729 PO; -LISI10TA PO; +MULT-506 PO; -NITRO SL; +NTRGSL/4 UT; -POLY1POW2 PO; +POLY335019 PO; +PROB1CAP54 PO
[2017-02-03 12:21] LABS: BLOOD UREA NITROGEN 15 mg/dl (7-18); GLUCOSE 102 mg/dl (70-99)
[2017-02-03 12:22] LABS: ALT/SGPT 198 U/L (12-78); BUN/CREATININE RATIO 10.5 (10-20); CALCIUM 9.2 mg/dl (8.5-10.1); CARBON DIOXIDE 27 mmol/L (21-32); CHLORIDE 106 mmol/L (98-107); POTASSIUM 4.6 mmol/L (3.5-5.1); SODIUM 140 mmol/L (136-145)
[2017-02-03 12:24] LABS: ALB/GLOB RATIO 0.9 (0.9-2); ALKALINE PHOSPHATASE 83 U/L (45-117); AST/SGOT 91 U/L (15-37)
== END | disposition home or self-care (01) ==
LOC: C.LABBFT 08:13
PROVIDERS: ATTEND Internal Medicine
DX: K85.90 Acute pancreatitis without necrosis or infection, unspecified (principal)

== ENCOUNTER → 2017-02-07 | Outpatient (CLI) | payer OTHER | END | disposition home or self-care (01) | LOC: C.LABBFT 17:29 | PROVIDERS: ATTEND Internal Medicine | DX: I25.10 Atherosclerotic heart disease of native coronary artery without angina pectoris (principal) ==

== ENCOUNTER → 2017-02-17 | Outpatient (CLI) | payer OTHER ==
[2017-02-17 12:26] LABS: BASO ABS # 0.06 K/uL (0-0.2); COMPLETE YES; EOS % 8.2 %; HEMATOCRIT 39.3 % (42-52); IG% 0.2 %; LYMPH ABS # 1.19 K/uL (1.2-3.4); MEAN CORPUSCULAR HEMOGLOBIN 33.8 pg (25-34); MEAN CORPUSCULAR HGB CONC 34.1 g/dl (32-36); MONO % 10.2 %; NEUT % 61.4 %; PLATELET COUNT 164 K/uL (130-400); RED BLOOD COUNT 3.97 M/uL (4.7-6.1); WHITE BLOOD COUNT 6.25 K/uL (4.8-10.8)
[2017-02-17 13:17] LABS: ALKALINE PHOSPHATASE 58 U/L (45-117); ALT/SGPT 33 U/L (12-78); AST/SGOT 18 U/L (15-37)
== END | disposition home or self-care (01) ==
LOC: C.LABBFT 08:06
PROVIDERS: ATTEND Internal Medicine
DX: K85.90 Acute pancreatitis without necrosis or infection, unspecified (principal); D64.9 Anemia, unspecified

== ENCOUNTER → 2017-03-20 | Outpatient (CLI) | payer OTHER | END | disposition home or self-care (01) | LOC: C.LABBFT 08:40 | PROVIDERS: ATTEND Internal Medicine | DX: E78.5 Hyperlipidemia, unspecified (principal) ==

== ENCOUNTER → 2017-06-09 | Outpatient (CLI) | payer OTHER ==
[2017-06-09 12:18] LABS: BASO % 0.8 %; BASO ABS # 0.06 K/uL (0-0.2); COMPLETE YES; EOS % 5.9 %; HEMATOCRIT 41.6 % (42-52); IG% 0.1 %; LYMPH % 17.9 %; MEAN CELL VOLUME 99.5 fL (80-100); MEAN CORPUSCULAR HEMOGLOBIN 33.3 pg (25-34); MEAN CORPUSCULAR HGB CONC 33.4 g/dl (32-36); MONO % 9.1 %; NEUT % 66.2 %; PLATELET COUNT 161 K/uL (130-400); RED BLOOD COUNT 4.18 M/uL (4.7-6.1); WHITE BLOOD COUNT 7.26 K/uL (4.8-10.8)
[2017-06-09 12:22] LABS: ALT/SGPT 26 U/L (12-78); BLOOD UREA NITROGEN 16 mg/dl (7-18); BUN/CREATININE RATIO 12.1 (10-20); CALCIUM 8.8 mg/dl (8.5-10.1); CARBON DIOXIDE 27 mmol/L (21-32); CHLORIDE 104 mmol/L (98-107); CHOLESTEROL 155 mg/dl (0-200); CREATININE 1.36 mg/dl (0.60-1.40); GLUCOSE 94 mg/dl (70-99); POTASSIUM 4.5 mmol/L (3.5-5.1); SODIUM 137 mmol/L (136-145)
[2017-06-09 12:27] LABS: ALB/GLOB RATIO 0.9 (0.9-2); ALKALINE PHOSPHATASE 60 U/L (45-117); AST/SGOT 19 U/L (15-37); CHOLESTEROL/HDL RATIO 3.4; HDL CHOLESTEROL 46 mg/dl; LDL CHOLESTEROL CALCULATED 84 mg/dl; PROSTATE SPECIFIC ANTIGEN 0.622 ng/ml (0.000-4.000); TRIGLYCERIDES 124 mg/dl (0-150); VERY LOW DENSITY LIPOPROT CALC 25 mg/dl
== END | disposition home or self-care (01) ==
LOC: C.LABBFT 08:07
PROVIDERS: ATTEND Internal Medicine
DX: I25.10 Atherosclerotic heart disease of native coronary artery without angina pectoris (principal); Z12.5 Encounter for screening for malignant neoplasm of prostate

== ENCOUNTER 2017-08-06 13:01 | Emergency (ER) | payer OTHER ==
[~2017-08-06] VITALS: Ht 177.8 cm; Wt 80.0 kg
[2017-08-06 13:04] VITALS: Ht 177.8 cm; Wt 80.0 kg
[2017-08-06] MEDS ORDERED: IBUPROFEN 600 MG TAB PO STA (13:14)
[2017-08-06] MEDS ORDERED: SODIUM CHLORIDE 0.9% 1000ML 1,000 ML IV STA (13:14)
[2017-08-06 13:52] LABS: BASO % 0.5 %; BASO ABS # 0.02 K/uL (0-0.2); EOS % 0.9 %; EOS ABS # 0.04 K/uL (0-0.5); HEMATOCRIT 38.2 % (42-52); HEMOGLOBIN 13.2 g/dL (14.0-18.0); IG# 0.01 K/uL (0.00-0.02); LYMPH % 9.4 %; MEAN CELL VOLUME 98.7 fL (80-100); MEAN CORPUSCULAR HEMOGLOBIN 34.1 pg (25-34); MEAN CORPUSCULAR HGB CONC 34.6 g/dl (32-36); MEAN PLATELET VOLUME 9.8 fL (7.4-10.4); MONO % 12.4 %; MONO ABS # 0.53 K/uL (0.11-0.59); NEUT % 76.6 %; NEUT ABS # 3.26 K/uL (1.4-6.5); PLATELET COUNT 110 K/uL (130-400); RED CELL DISTRIBUTION WIDTH CV 12.9 % (11.5-14.5); RED CELL DISTRIBUTION WIDTH SD 46.3 fL (36.4-46.3); WHITE BLOOD COUNT 4.26 K/uL (4.8-10.8)
[2017-08-06 14:09] LABS: CALCIUM 8.7 mg/dl (8.5-10.1); CREATININE 1.31 mg/dl (0.60-1.40); POTASSIUM 4.1 mmol/L (3.5-5.1)
[2017-08-06 14:17] LABS: INFLUENZA B ANTIGEN Neg for Influ B (NEG)
[2017-08-06] MEDS ORDERED: ACETAMINOPHEN 500 MG TAB PO STA (14:57)
--- NOTE | 2017-08-06 15:00 | DIAGNOSTIC IMAGING REPORT ---
CHEST 2 VIEWS ROUTINE CLINICAL HISTORY: 77 years-old Male presenting with fever, cough. TECHNIQUE: PA and lateral views of the chest were obtained. COMPARISON: 01/30/2017. FINDINGS: Left subclavian implanted cardiac defibrillator with leads to the right atrium and right ventricular apex. Atherosclerosis of the aortic arch. Cardiac silhouette normal in size. Mild prominence of pulmonary vasculature. Calcified granuloma noted in the right mid lung. Lungs and pleural spaces otherwise clear. Degenerative changes of the thoracic spine. Cholecystectomy clips noted. IMPRESSION: 1. Mildly prominent pulmonary vasculature could indicate volume overload. No lola pulmonary edema or evidence of acute cardiopulmonary disease. Electronically signed by: Ben Srinivasan M.D. 08/06/2017 2:59 PM Dictated Date/Time: 08/06/2017 2:58 PM
[2017-08-06] MEDS ORDERED: OSEL75CA12 PO (15:15)
--- NOTE | 2017-08-06 15:17 | EMERGENCY ROOM VISIT NOTE ---
History First contact with patient: 13:07 Chief Complaint: FLU LIKE SX Stated Complaint: FLU LIKE SYMPTOMS History of Present Illness The patient is a 77 year old male who presents to the Emergency Room with complaints of flulike symptoms. The patient states that his symptoms started yesterday with fever ranging anywhere from 101-104. He also admits to sore throat with coughing. He states the cough is productive with white sputum. He also feels achy all over. The patient denies any chest tightness or shortness of breath. The patient states that his has similar symptoms but has not been seen by a medical provider. Review of Systems 10 system review was performed and was negative unless stated otherwise history of present illness. Past Medical/Surgical History Medical Problems: (1) Ischemic cardiomyopathy (2) Left Ventricular Thrombus Family History No pertinent family history Social History Smoking Status: Former Smoker Alcohol Use: none Drug Use: none Marital Status: Housing Status: lives with family Occupation Status: retired, other Current/Historical Medications Scheduled Aspirin Enteric Coated (Ecotrin Or Generic), 81 MG PO DAILY Atorvastatin (Lipitor), 60 MG PO HS Carvedilol (Carvedilol), 12.5 MG PO BID Clopidogrel (Plavix), 75 MG PO QPM Dutasteride-Tamsulosin Hcl (Imelda), 1 CAP PO DAILY Lisinopril (Prinivil), 2.5 MG PO QAM Multivitamin (Multivitamin), 1 TAB PO DAILY Nitroglycerin (Nitrostat), 0.4 MG UT PRN Polyethylene Glycol 3350 (Miralax), 17 GM PO DAILY Probiotic Product (Acidophilus), 1 CAP PO DAILY Physical Exam Vital Signs Date Time Temp Pulse Resp B/P (MAP) Pulse Ox O2 Delivery O2 Flow Rate FiO2 08/06/17 15:01 114 24 08/06/17 14:36 113 08/06/17 14:34 134/85 08/06/17 14:34 38.5 112 20 134/85 95 Room Air 08/06/17 13:04 38.9 122 20 155/97 95 Room Air Physical Exam PHYSICAL EXAM: Vital Signs were reviewed: Temperature 38.9, blood pressure 155/ 97, pulse 122, respiratory rate 20 Reviewed Nurse's notes and agree. Oxygen saturation is 95 % on room air which is normal . GENERAL: 77-year-old male appears in no acute distress. MENTAL STATUS: Alert, oriented, coherent. EARS: Canals clear. TMs good light reflex, no erythema or fluid level noted. NOSE: Nasal mucosa with moderate erythema engorgement. PHARYNX: No erythema, no edema noted. No exudate noted. Airway is adequate. NECK: Supple, non-tender. No lymphadenopathy noted. LUNGS: Clear to auscultation without wheezes rales or rhonchi. CARDIAC: Tachycardic at a rate of 122 .normal rhythm without murmur. SKIN: No rashes noted. Medical Decision & Procedures ER Provider Diagnostic Interpretation: CHEST 2 VIEWS ROUTINE CLINICAL HISTORY: 77 years-old Male presenting with fever, cough. TECHNIQUE: PA and lateral views of the chest were obtained. COMPARISON: 01/30/2017. FINDINGS: Left subclavian implanted cardiac defibrillator with leads to the right atrium and right ventricular apex. Atherosclerosis of the aortic arch. Cardiac silhouette normal in size. Mild prominence of pulmonary vasculature. Calcified granuloma noted in the right mid lung. Lungs and pleural spaces otherwise clear. Degenerative changes of the thoracic spine. Cholecystectomy clips noted. IMPRESSION: 1. Mildly prominent pulmonary vasculature could indicate volume overload. No lola pulmonary edema or evidence of acute cardiopulmonary disease. Electronically signed by: Ben Srinivasan M.D. 08/06/2017 2:59 PM Laboratory Results 08/06/17 13:20 Red Blood Count 3.87, Mean Corpuscular Volume 98.7, Mean Corpuscular Hemoglobin 34.1, Mean Corpuscular Hemoglobin Concent 34.6, Mean Platelet Volume 9.8, Neutrophils (%) (Auto) 76.6, Lymphocytes (%) (Auto) 9.4, Monocytes (%) (Auto) 12.4, Eosinophils (%) (Auto) 0.9, Basophils (%) (Auto) 0.5, Neutrophils # (Auto ) 3.26, Lymphocytes # (Auto) 0.40, Monocytes # (Auto) 0.53, Eosinophils # (Auto ) 0.04, Basophils # (Auto) 0.02 08/06/17 13:20 Test 08/06/17 13:20 White Blood Count 4.26 K/uL (4.8-10.8) Red Blood Count 3.87 M/uL (4.7-6.1) Hemoglobin 13.2 g/dL (14.0-18.0) Hematocrit 38.2 % (42-52) Mean Corpuscular Volume 98.7 fL (80-100) Mean Corpuscular Hemoglobin 34.1 pg (25-34) Mean Corpuscular Hemoglobin Concent 34.6 g/dl (32-36) Platelet Count 110 K/uL (130-400) Mean Platelet Volume 9.8 fL (7.4-10.4) Neutrophils (%) (Auto) 76.6 % Lymphocytes (%) (Auto) 9.4 % Monocytes (%) (Auto) 12.4 % Eosinophils (%) (Auto) 0.9 % Basophils (%) (Auto) 0.5 % Neutrophils # (Auto) 3.26 K/uL (1.4-6.5) Lymphocytes # (Auto) 0.40 K/uL (1.2-3.4) Monocytes # (Auto) 0.53 K/uL (0.11-0.59) Eosinophils # (Auto) 0.04 K/uL (0-0.5) Basophils # (Auto) 0.02 K/uL (0-0.2) RDW Standard Deviation 46.3 fL (36.4-46.3) RDW Coefficient of Variation 12.9 % (11.5-14.5) Immature Granulocyte % (Auto) 0.2 % Immature Granulocyte # (Auto) 0.01 K/uL (0.00-0.02) Anion Gap 8.0 mmol/L (3-11) Est Creatinine Clear Calc Drug Dose 49.5 ml/min Estimated GFR () 60.9 Estimated GFR (Non- 52.5 BUN/Creatinine Ratio 15.5 (10-20) Calcium Level 8.7 mg/dl (8.5-10.1) Influenza Type A Antigen POS for Influ A (NEG) Influenza Type B Antigen Neg for Influ B (NEG) Medications Administered Medications (Trade) Dose Ordered Sig/Mihaela Route Start Time Stop Time Status Last Admin Dose Admin Sodium Chloride 1,000 ml @ 999 mls/hr Q1H1M STAT IV 08/06/17 13:14 08/06/17 14:14 DC 08/06/17 13:32 999 MLS/HR Ibuprofen (Motrin Tab) 600 mg NOW STAT PO 08/06/17 13:14 08/06/17 13:17 DC 08/06/17 13:32 600 MG ED Course The patient was evaluated. The patient's EMR medication list were reviewed. IV access was obtained. The patient was given 1 L normal saline wide-open. CBC and differential, renal profile was ordered. Labs are reviewed and were unremarkable. White count was normal. Rapid influenza was positive for influenza A and negative for influenza B. Chest x-ray was ordered interpreted by the radiologist and myself as above without any acute cardiopulmonary findings.. The patient was given Motrin 600 mg by mouth for fever. The patient was reevaluated on several occasions. The patient's temperature did not fit able to Motrin therefore he was given Tylenol 1 g by mouth for fever. The fluids brought his pulse down to 112. The patient was independently evaluated by Dr. Delaney who agrees with treatment plan. The patient was discharged home in stable condition. Medical Decision Differential diagnosis include influenza, viral syndrome, bronchitis, pneumonia [place] Drug Monitoring Program Search Results: patient reviewed within database Medication Reconcilliation Current Medication List: was personally reviewed by me Blood Pressure Screening Patient's blood pressure: Elevated blood pressure Blood pressure disposition: Elevated BP felt to be situational Impression Primary Impression: Influenza A Departure Information Dispostion Home / Self-Care Condition GOOD Prescriptions Oseltamivir (Tamiflu) 75 Mg Cap 75 MG PO BID for 5 Days, #10 CAP Prov: Keira Fu, JIMENA-C 08/06/17 Referrals Cleveland Blair M.D. (PCP) Forms HOME CARE DOCUMENTATION FORM, IMPORTANT VISIT INFORMATION Patient Instructions My [facility] Additional Instructions Push fluids. Water and/or Gatorade. Tylenol and/or ibuprofen as needed for fever. Take Tamiflu as prescribed. Rest. If your fever does not come down with Tylenol or Motrin, symptoms worsen return to the ER immediately. Also recommend that your call her physician for prophylactic treatment.
--- NOTE | 2017-08-06 15:20 | EMERGENCY ROOM VISIT NOTE ---
ED Visit Note First contact with patient: 15:00 The patient was seen and examined with JIMENA maciel. I agree with the history, physical and findings. Please see the note for disposition and details. Patient has a positive flu. No chronic lung disease, not immunocompromised. Discussed with the patient and son at bedside and offered observation in the hospital, both declined saying they feel comfortable taking care of the patient at home. Discharge with Tamiflu. Return precautions discussed with the patient and family member. DISCHARGE - Plan of care discussed with family and questions answered. The family was given both verbal and printed discharge instructions. The family verbalized understanding and ability to comply. The family is to seek outpatient follow up as noted in the discharge instructions. The family verbalized understanding and ability to comply. The family is discharged in stable condition. The family was instructed to return for worsening symptoms.
[2017-08-06 15:45] VITALS: BP 132/79; PULSE 118; TEMP 38.2; O2SAT 96
== END 2017-08-06 15:45 | disposition home or self-care (01) ==
LOC: C.EDB 13:03 → C.EDA 15:45
DX: J10.1 Influenza due to other identified influenza virus with other respiratory manifestations (principal); Z87.891 Personal history of nicotine dependence; Z79.82 Long term (current) use of aspirin; Z79.02 Long term (current) use of antithrombotics/antiplatelets

== ENCOUNTER 2020-05-17 22:28 | Observation (INO) ==
[2020-05-17] MEDS ORDERED: NITROGLYCERIN 2% OINTMENT 30GM TUBE EXT ONE (23:12)
--- NOTE | 2020-05-17 23:12 | Emergency Department Note ---
History of Present Illness General Chief complaint: Chest Pain Stated complaint: CHEST PAIN Time Seen by Provider: 05/17/20 23:00 Source: patient Mode of arrival: EMS History of Present Illness Provider complaint: Chest pain Onset (ago): hour(s) Location: chest Radiation: non-radiation Severity: mild Pain Consistency: + constant Maximum Pain Intensity: 2 Quality: + dull Relieved By: + medication (Nitroglycerin and aspirin) Associated symptoms: no cough, no fever/chills, no nausea/vomiting and no shortness of breath Treatments prior to arrival: aspirin and other (Nitroglycerin) This is a 80-year-old male with a history of pancreatitis and CAD presenting with chest pain starting 2 hours prior to arrival. He describes it as a dull pain in the middle of his chest. There is no radiation. It is not associated with any diaphoresis, shortness of breath or fever cough or cold symptoms. He states it feels similar to when he had pancreatitis. He does not know why he got pancreatitis. He does not drink alcohol. He states that he was given aspirin and nitroglycerin in the ambulance and his chest pain is better. He rates it a 2 out of 10 in severity. He denies any leg swelling or pain, immobilization, Covid symptoms or exposure, abdominal pain, vomiting, diarrhea, black or bloody stools. Home Medications Medication Instructions Recorded Confirmed Type aspirin 81 mg tablet,delayed 81 mg PO DAILY #30 tab 01/12/19 05/17/20 Rx release Lactobacillus acidophilus 1 1,000 mmu cells PO DAILY tab 02/19/19 05/17/20 History billion cell tablet cholecalciferol (vitamin D3) 25 1,000 unit PO DAILY 02/19/19 05/17/20 History mcg (1,000 unit) capsule multivitamin 1 tab PO DAILY 02/19/19 05/17/20 History polyethylene glycol 3350 17 gram 17 g PO DAILY 02/19/19 05/17/20 History oral powder packet dutasteride 0.5 mg-tamsulosin ER 1 cap PO PM #90 cap 08/02/19 05/17/20 Rx 0.4 mg capsule ext.release 24hr mphas atorvastatin 40 mg tablet 40 mg PO DAILY #90 tab 10/04/19 05/17/20 Rx clopidogrel 75 mg tablet 75 mg PO DAILY #90 tab 11/25/19 05/17/20 Rx carvedilol 12.5 mg tablet 12.5 mg PO BID #180 tab 02/03/20 05/17/20 Rx amoxicillin 500 mg capsule 2,000 mg PO ONCE #10 cap 05/03/20 05/17/20 Rx sulfamethoxazole 400 1 tab PO BID 30 Days #60 tab 05/16/20 05/17/20 Rx mg-trimethoprim 80 mg tablet docusate sodium [Colace] 100 mg PO DAILY 05/17/20 05/17/20 History lisinopril 2.5 mg PO DAILY 05/17/20 05/17/20 History nitroglycerin 1 spray TRANSLINGUAL UD PRN 05/17/20 05/17/20 History Allergies Allergy/AdvReac Type Severity Reaction Status Date / Time doxycycline Allergy Unknown Verified 05/17/20 23:11 levofloxacin Allergy Unknown Verified 05/17/20 23:11 Past Med/Surg History Medical History (Updated 05/18/20 @ 00:14 by Darren Rogers MD) Actinic keratosis Acute myocardial infarction Anemia Benign prostate hyperplasia Bladder pain Cardiomyopathy Coronary artery arteriosclerosis Elevated prostate specific antigen (PSA) Frequency of micturition History of Clostridium difficile infection History of malignant melanoma Hx of pancreatitis Hx of rosacea Insomnia Left ventricular thrombosis Microscopic hematuria Nocturia 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 and A total of 10 systems reviewed and were otherwise negative Physical Exam Vital Signs Vital Signs - 24 hr 05/17/20 22:36 05/17/20 23:24 05/18/20 01:11 Temperature 36.6 C Temperature Source Oral Pulse Rate 90 Pulse Rate [Right Finger] 73 73 Pulse Rhythm Regular Pulse Strength Normal Respiratory Rate 22 17 14 Respiratory Effort / Characteristics Non-Labored Respiratory Depth Normal Blood Pressure 137/88 Blood Pressure [Right Arm] 119/66 130/96 Blood Pressure Mean 104 Blood Pressure Mean [Right Arm] 83 107 Pulse Oximetry 95 95 95 Oxygen Delivery Method Room Air Sepsis Recent Fever Within 48 Hours No Sepsis New/Unexplained Change in Mental Status N/A Sepsis Action Taken by Nursing No Action Required Constitutional: Vital signs reviewed. Eyes: Pupils are equal round reactive to light. Conjunctiva are noninjected. ENT: Pharynx is clear without erythema or exudate. Mucous membranes are moist. Neck supple without meningeal signs. Respiratory: Clear to auscultation bilaterally. Breath sounds are equal bilaterally. Cardiovascular: Regular rate and rhythm. No rubs or gallops. GI: Soft, nondistended and nontender. Bowel sounds are present. Musculoskeletal: No peripheral edema. No lower extremity tenderness. Integumentary: No cyanosis. or jaundice. Neurological: The patient is awake and alert. No focal deficits. Psychiatric: Normal affect. Not anxious appearing. Course Administered Medications Discontinued Medications Nitroglycerin (Nitroglycerin 2% Ointment 30gm Tube) 0.5 inch EXT NOW ONE Stop: 05/17/20 23:13 Last Admin: 05/17/20 23:16 Dose: 0.5 inch Documented by: [id number] Medical Decision Making Differential Diagnosis Unstable angina, AR, pancreatitis, pleurisy, pneumonia Medical Records Attestation: I reviewed the patient's medical records. I did perform a limited focused review of portions of the patient's old chart on the electronic medical record. The patient has had no recent pertinent visits to this hospital. Home Medications Current Medication List: was personally reviewed by me Laboratory Data Attestation: I reviewed the patient's lab results. Result diagrams: 05/17/20 22:34 05/17/20 22:34 Lab Results 05/17/20 05/17/20 05/17/20 Range/Units 22:34 22:34 22:34 WBC 6.56 (4.8-10.8) K/uL RBC 3.78 L (4.7-6.1) M/uL Hgb 12.8 L (14.0-18.0) g/dL Hct 38.1 L (42-52) % MCV 100.8 H (80-100) fL MCH 33.9 (25-34) pg MCHC 33.6 (32-36) g/dL RDW Std Deviation 47.1 H (36.4-46.3) fL RDW Coeff of Mitzy 12.8 (11.5-14.5) % Plt Count 163 (130-400) K/uL MPV 9.8 (7.4-10.4) fL Immature Gran % (Auto) 0.3 % Neut % (Auto) 52.1 % Lymph % (Auto) 30.8 % Taney % (Auto) 9.3 % Eos % (Auto) 6.9 % Baso % (Auto) 0.6 % Neut # (Auto) 3.42 (1.4-6.5) K/uL Lymph # (Auto) 2.02 (1.2-3.4) K/uL Taney # (Auto) 0.61 H (0.11-0.59) K/uL Eos # (Auto) 0.45 (0-0.5) K/uL Baso # (Auto) 0.04 (0-0.2) K/uL Immature Gran # (Auto) 0.02 (0.00-0.02) K/uL PT 10.6 (9.0-12.0) Seconds INR 1.0 (0.9-1.1) APTT 28.9 (21.0-31.0) Seconds PTT Ratio 1.0 Sodium 141 (136-145) mmol/L Potassium 4.4 (3.5-5.1) mmol/L Chloride 109 H (98-107) mmol/L Carbon Dioxide 27 (21-32) mmol/L Anion Gap 6.0 (3-11) BUN 24 H (7-18) mg/dl Creatinine 1.32 (0.6-1.4) mg/dl Est Cr Clr Drug Dosing 49.8 ml/min Est GFR ( Amer) 59.0 Est GFR (Non-Af Amer) 50.9 BUN/Creatinine Ratio 17.9 (10-20) Glucose 104 H (70-99) mg/dl Calcium 9.1 (8.5-10.1) mg/dl Total Bilirubin 0.3 (0.2-1) mg/dl AST 52 H (15-37) U/L ALT 37 (12-78) U/L Alkaline Phosphatase 56 (45-117) U/L Troponin I 0.021 (0-0.045) ng/ml Total Protein 7.4 (6.4-8.2) gm/dl Albumin 3.5 (3.4-5.0) gm/dl Globulin 3.9 (2.5-4.0) gm/dl Albumin/Globulin Ratio 0.9 (0.9-2) Lipase 3480 H (73-393) U/L Imaging Data Attestation: I personally reviewed and interpreted this imaging study as follows: My Impression: Chest x-ray per my interpretation shows no acute cardiopulmonary process. ECG Data Attestation: I personally reviewed and interpreted this ECG as follows: Indication: + chest pain Rate (beats per minute): 81 Rhythm: + normal sinus ECG ST segments: + T-wave inversions (Lateral) ECG Findings: + Q waves (Inferior); no PVCs Comparison ECG Date: from (January 30, 2017) Change: no significant change MDM Narrative I did evaluate the patient as noted above. The patient is presenting with chest pain which is improved after being given nitro and aspirin. He does have a prior history of CAD but states that this feels like his pancreatitis. He had pancreatitis in 2017 without any clear etiology. I did place an order for continuous cardiac monitoring. The monitor showed normal sinus rhythm at a rate of 72 bpm. I did order and personally review the patient's 12-lead EKG as described above. He has some old Q waves and T wave inversions as described a heather. No acute ischemic changes are noted. I did treat him with Nitropaste. I did order and personally reviewed the images of the patient's chest x-ray as described above. His chest x-ray is unremarkable. I did order and review the patient's blood work as noted in the electronic medical record. CBC demonstrates a mild anemia. His white blood cell count is not elevated. Troponin is negative. Lipase demonstrates elevation at 3480. LFTs are unremarkable. I did discuss the test results with the patient. On reevaluation the patient states his chest pain is now almost gone. He does not want any further medication for his chest pain. I did discuss the case with the hospitalist and director of casework. Impression & Plan Acute pancreatitis, Chest pain, Anemia Discharge Plan Visit Data Chief Complaint: Chest Pain Stated Complaint: CHEST PAIN ED Provider: Darren Rogers Discharge Problem: Acute pancreatitis, Chest pain, Anemia Patient Disposition: Being Evaluated by Hospitalist Forms Stand Alone Forms: My [facility] List Prescriptions Prescriptions: No Action dutasteride-tamsulosin [Imelda] 0.5-0.4 mg capsule, ER multiphase 24 hr 1 cap PO PM Qty: 90 RF: 3 atorvastatin 40 mg tablet 40 mg PO DAILY Qty: 90 RF: 3 clopidogrel 75 mg tablet 75 mg PO DAILY Qty: 90 RF: 3 carvedilol 12.5 mg tablet 12.5 mg PO BID Qty: 180 RF: 3 amoxicillin 500 mg capsule 2,000 mg PO ONCE Qty: 10 RF: 1 sulfamethoxazole-trimethoprim [Bactrim] 400-80 mg tablet 1 tab PO BID 30 Days Qty: 60 RF: 0 aspirin [Adult Low Dose Aspirin] 81 mg tablet,delayed release (DR/EC) 81 mg PO DAILY Qty: 30 RF: 2 multivitamin [Daily Multi-Vitamin] tablet 1 tab PO DAILY RF: 0 Lactobacillus acidophilus 1 billion cell tablet 1,000 mmu cells PO DAILY RF: 0 nitroglycerin 400 mcg/spray spray,non-aerosol 1 spray translingual UD PRN (Reason: Chest Pain) RF: 0 docusate sodium [Colace] 100 mg Capsule 100 mg PO DAILY RF: 0 lisinopril 5 mg tablet 2.5 mg PO DAILY RF: 0 polyethylene glycol 3350 [Miralax] 17 gram powder in packet 17 g PO DAILY RF: 0 cholecalciferol (vitamin D3) 1,000 unit capsule 1,000 unit PO DAILY RF: 0 Referrals Referrals: Cleveland Blair III, MD [Primary Care Provider] - Discharge Problem: Acute pancreatitis Qualifiers: Pancreatitis type: unspecified pancreatitis type Acute pancreatitis c omplication: unspecified Qualified Code(s): K85.90 - Acute pancreatitis without necrosis or infection, unspecified Chest pain Qualifiers: Chest pain type: unspecified Qualified Code(s): R07.9 - Chest pain, unspecified Anemia Qualifiers: Anemia type: unspecified type Qualified Code(s): D64.9 - Anemia, unspecified
[2020-05-17 23:26] LABS: Basophils # (auto) 0.04 K/uL (0-0.2); Basophils % (auto) 0.6 %; Eosinophils # (auto) 0.45 K/uL (0-0.5); Eosinophils % (auto) 6.9 %; Hematocrit (blood only) 38.1 % (42-52); Hemoglobin 12.8 g/dL (14.0-18.0); Immature Granulocytes # (auto) 0.02 K/uL (0.00-0.02); Immature Granulocytes % (auto) 0.3 %; Lymphocytes # (auto) 2.02 K/uL (1.2-3.4); Lymphocytes % (auto) 30.8 %; Mean Corpuscular Hemoglobin 33.9 pg (25-34); Mean Corpuscular Hgb Conc 33.6 g/dL (32-36); Mean Corpuscular Volume 100.8 fL (80-100); Mean Platelet Volume 9.8 fL (7.4-10.4); Monocytes # (auto) 0.61 K/uL (0.11-0.59); Monocytes % (auto) 9.3 %; Neutrophils # (auto) 3.42 K/uL (1.4-6.5); Neutrophils % (auto) 52.1 %; Platelet Count 163 K/uL (130-400); RDW Coefficient of Variation 12.8 % (11.5-14.5); RDW Standard Deviation 47.1 fL (36.4-46.3); Red Blood Count 3.78 M/uL (4.7-6.1); White Blood Count 6.56 K/uL (4.8-10.8)
[2020-05-17 23:33] LABS: Albumin Level 3.5 gm/dl (3.4-5.0); BUN Creatinine Ratio 17.9 (10-20); Calcium 9.1 mg/dl (8.5-10.1); Creatinine Clr Calc Pharmacy 49.8 ml/min; Est GFR (Non-African American) 50.9; Potassium 4.4 mmol/L (3.5-5.1)
[2020-05-17 23:38] LABS: Albumin Globulin Ratio 0.9 (0.9-2); Bilirubin,Total 0.3 mg/dl (0.2-1); Globulin 3.9 gm/dl (2.5-4.0); Total Protein 7.4 gm/dl (6.4-8.2); Troponin I 0.021 ng/ml (0-0.045)
[2020-05-17 23:45] LABS: Partial Thromboplastin Time 28.9 Seconds (21.0-31.0); Prothrombin Time 10.6 Seconds (9.0-12.0)
--- NOTE | 2020-05-18 01:32 | History & Physical Report ---
Date of Service May 18, 2020 Assessment & Plan (1) Dysuria: (2) CKD (chronic kidney disease), stage III: (3) Benign prostatic hyperplasia with urinary obstruction: (4) Chronic prostatitis: (5) Hypertension: (6) Hypercholesteremia: (7) CAD (coronary artery disease): History of Present Illness Primary Care Provider: Cleveland Blair MD Pt is a 80yo admitted with ?pancreatitis after presenting with epigastric pain. States that he had 2 candy bars before bed and was awoken with epigastric pain, nonradiating. No associated diaphoresis, N/V, SOB or palpitations. Took a nitroglycerin at home which did NOT help with the pain. Thought he might be having a heart attack so he came to the ED. States he has had pancreatitis before and was treated in this hospital for it. States he has an appetite but usually does not eat at night. Also has a signifcant cardiac hx with placement of a defibrillator. Allergies Allergy/AdvReac Type Severity Reaction Status Date / Time doxycycline Allergy Unknown Verified 05/17/20 23:11 levofloxacin Allergy Unknown Verified 05/17/20 23:11 Home Medications Medication Instructions Recorded Confirmed Type aspirin 81 mg tablet,delayed 81 mg PO DAILY #30 tab 01/12/19 05/17/20 Rx release Lactobacillus acidophilus 1 1,000 mmu cells PO DAILY tab 02/19/19 05/17/20 History billion cell tablet cholecalciferol (vitamin D3) 25 1,000 unit PO DAILY 02/19/19 05/17/20 History mcg (1,000 unit) capsule multivitamin 1 tab PO DAILY 02/19/19 05/17/20 History polyethylene glycol 3350 17 gram 17 g PO DAILY 02/19/19 05/17/20 History oral powder packet dutasteride 0.5 mg-tamsulosin ER 1 cap PO PM #90 cap 08/02/19 05/17/20 Rx 0.4 mg capsule ext.release 24hr mphas atorvastatin 40 mg tablet 40 mg PO DAILY #90 tab 10/04/19 05/17/20 Rx clopidogrel 75 mg tablet 75 mg PO DAILY #90 tab 11/25/19 05/17/20 Rx carvedilol 12.5 mg tablet 12.5 mg PO BID #180 tab 02/03/20 05/17/20 Rx amoxicillin 500 mg capsule 2,000 mg PO ONCE #10 cap 05/03/20 05/17/20 Rx sulfamethoxazole 400 1 tab PO BID 30 Days #60 tab 05/16/20 05/17/20 Rx mg-trimethoprim 80 mg tablet docusate sodium [Colace] 100 mg PO DAILY 05/17/20 05/17/20 History lisinopril 2.5 mg PO DAILY 05/17/20 05/17/20 History nitroglycerin 1 spray TRANSLINGUAL UD PRN 05/17/20 05/17/20 History Past Med/Surg History Medical History (Updated 05/19/20 @ 00:02 by Background Dakristie) Actinic keratosis Acute myocardial infarction Acute pancreatitis Anemia Anemia Benign prostate hyperplasia Bladder pain Cardiomyopathy Chest pain Coronary artery arteriosclerosis Elevated prostate specific antigen (PSA) Frequency of micturition History of Clostridium difficile infection History of malignant melanoma Hx of pancreatitis Hx of rosacea Insomnia Left ventricular thrombosis Microscopic hematuria Nocturia 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 Stroke syndrome Surgical History History of cardiac cath History of transurethral resection of prostate Hx of cholecystectomy Hx of melanoma excision Hx of prostatectomy Family History Father Acute myocardial infarction Mother Gastric cancer Brother Laryngeal cancer Social History Smoking Status: Former smoker Second Hand Exposure: No; Do You Dip or Chew Tobacco: No; Tobacco Cessation Education Requested by Patient: No Hx Alcohol Use: No Hx Substance Use: No Preferred Language: Slovak Communication Ability: Effective [place] Or City Auditor Required: No Beliefs That Will Affect Care: None Current Living Situation: Spouse Other Information That Helps Us Care for You: No Feels Safe at Home: Yes Safety Concerns: Feels Safe At This Time caffeine: Yes Seatbelt Use: always Assistive Devices: None Review of Systems Constitutional: no fever, no chills, no sweats and no anorexia Eyes: no worsening vision Ear, Nose, Mouth, Throat: no nasal congestion and no sore throat Respiratory: no cough and no dyspnea Cardiovascular: + chest pain; no radiating jaw, neck or arm pain, no dyspnea, no palpitations and no edema Gastrointestinal: no abdominal pain, no nausea, no vomiting, no constipation, no diarrhea/loose stools and no blood in stools Genitourinary: no dysuria and no hematuria Musculoskeletal: no back pain Integumentary: no rash Neurologic: no headache(s) and no confusion Psychiatric: no confusion Physical Exam Physical Exam: General: Alert, oriented. No acute distress Skin: No noted rashes or bruises Psych: Appropriate mood and affect Neuro: No gross deficits HEENT: NC/AT Chest: Nontender to palpation. CV: RRR, Normal s1, s2. No murmurs appreciated Resp: Breath sounds clear and decreased bilaterally, no increased effort of breathing. Abdomen: BS+. Soft, nontender, nondistended. No guarding. Extremities: Trace edema in lower extremities bilaterally. Results & Data Results & Data ([facility]) Vital Signs (Past 12 Hours) Vital Signs Temp Pulse Pulse Resp BP BP Pulse Ox 05/18/20 01:11 73 14 130/96 95 05/17/20 23:24 73 17 119/66 95 05/17/20 22:36 36.6 C 90 22 137/88 95 Supervising Physician Co-Signing Physician Notes Patient discussed with Dr. Jauregui and I agree with her assessment and plan as documented above Resident Activity Tracking Resident Involvement: Resident Care Provided Care Provided: Adult Hospital Medicine
--- NOTE | 2020-05-18 07:10 | Ultrasound Report ---
ABDOMINAL ULTRASOUND, RIGHT UPPER QUADRANT HISTORY: Epigastric pain. Elevated lipase. r/o pancreatitis. COMPARISON: CT of the abdomen and pelvis January 31, 2017. FINDINGS: A few hepatic cysts are noted. There is mild intra and extrahepatic biliary ductal dilatati on. The common bile duct measures 1.1 cm in caliber. This is stable or slightly increased since CT of January 31, 2017 and may be related to cholecystectomy. No common bile duct calculi are identified by sonography. There is borderline dilatation of the main pancreatic duct, measuring 3 mm. The pancreati c body is normal. The head and tail are partially obscured. No peripancreatic fluid collections are n oted. There is no right hydronephrosis. IMPRESSION: 1. Mild intra and extra hepatic biliary ductal dilatation, likely similar to CT of January 31, 2017. No common bile duct calculi identified. This ductal dilatation is likely related to previous cholecyste ctomy however could be correlated with liver function tests. 2. Borderline dilatation of main pancreatic duct. No peripancreatic fluid collections. Pancreatic hea d and tail slightly obscured. ACT 112: Negative or not required by law. Electronically signed by: Vicente Garcia M.D. 05/18/2020 7:09 AM
--- NOTE | 2020-05-18 08:13 | XRay Report ---
SINGLE VIEW CHEST CLINICAL HISTORY: Atypical chest pain. FINDINGS: An AP, portable, upright chest radiograph is compared to study dated 03/11/2019. A 2-lead ca rdiac AICD is unchanged in position and partially obscures the left upper chest. The heart is enlarge d noting atherosclerotic calcification of the thoracic aorta. The pulmonary vasculature is noncongest ed. A calcified granuloma is seen in the right midlung. There is no airspace consolidation or large p leural effusion. No pneumothorax is seen. The skeletal structures are osteopenic. The bony thorax is grossly intact. IMPRESSION: 1. Cardiomegaly and AICD. There is no radiographic evidence of congestive failure. 2. No airspace consolidation or pleural effusion is identified. ACT 112: Negative or not required by law. Electronically signed by: Yrn Obrien M.D. 05/18/2020 8:12 AM
[2020-05-18] MEDS: LACTATED RINGER'S 1,000 ML IV SCH ×2 (08:19→12:43)
[2020-05-18] MEDS: SULFA/TRIMETH 400/80MG TAB PO SCH ×2 (08:23→19:00)
[2020-05-18 08:36] LABS: Basophils # (auto) 0.03 K/uL (0-0.2); Basophils % (auto) 0.5 %; Eosinophils # (auto) 0.19 K/uL (0-0.5); Eosinophils % (auto) 3.2 %; Hematocrit (blood only) 39.2 % (42-52); Hemoglobin 13.2 g/dL (14.0-18.0); Immature Granulocytes # (auto) 0.02 K/uL (0.00-0.02); Immature Granulocytes % (auto) 0.3 %; Lymphocytes # (auto) 0.88 K/uL (1.2-3.4); Lymphocytes % (auto) 14.8 %; Mean Corpuscular Hemoglobin 33.8 pg (25-34); Mean Corpuscular Hgb Conc 33.7 g/dL (32-36); Mean Corpuscular Volume 100.5 fL (80-100); Mean Platelet Volume 9.8 fL (7.4-10.4); Monocytes # (auto) 0.56 K/uL (0.11-0.59); Monocytes % (auto) 9.4 %; Neutrophils # (auto) 4.25 K/uL (1.4-6.5); Neutrophils % (auto) 71.8 %; Platelet Count 158 K/uL (130-400); RDW Standard Deviation 47.5 fL (36.4-46.3); White Blood Count 5.93 K/uL (4.8-10.8)
[2020-05-18] MEDS ORDERED: ASPIRIN 81 MG ECTAB PO SCH (09:00)
[2020-05-18] MEDS ORDERED: ATORVASTATIN 40 MG TAB PO SCH (09:00)
[2020-05-18] MEDS ORDERED: CLOPIDOGREL BISULFATE 75 MG TAB PO SCH (09:00)
[2020-05-18] MEDS ORDERED: POLYETHYLENE (MIRALAX) 17 GM PACK PO SCH (09:00)
[2020-05-18] MEDS ORDERED: MULTIVITAMIN TAB PO SCH (09:00)
[2020-05-18] MEDS ORDERED: carvediloL 12.5 MG TAB PO SCH (09:00)
[2020-05-18] MEDS ORDERED: DOCUSATE SODIUM 100 MG CAP PO SCH (09:00)
[2020-05-18] MEDS ORDERED: CHOLECALCIFEROL 1,000 UNITS 25 MCG TAB PO SCH (09:00)
[2020-05-18] MEDS ORDERED: lisinopril 2.5 MG TAB PO SCH (09:00)
[2020-05-18 09:12] LABS: Albumin Level 3.5 gm/dl (3.4-5.0); BUN Creatinine Ratio 15.6 (10-20); Calcium 9.4 mg/dl (8.5-10.1); Creatinine Clr Calc Pharmacy 48.7 ml/min; Est GFR (African American) 64.3; Est GFR (Non-African American) 55.5; Potassium 4.3 mmol/L (3.5-5.1)
[2020-05-18 09:15] LABS: Chol HDL Ratio 4; Cholesterol 173 mg/dl (0-200); HDL Cholesterol 45 mg/dl; LDL Cholesterol Calculated 104 mg/dl; Lipase 794 U/L (73-393); Triglycerides 122 mg/dl (0-150); VLDL Cholesterol 24 mg/dl
[2020-05-18 09:17] LABS: Albumin Globulin Ratio 0.9 (0.9-2); Bilirubin,Total 0.5 mg/dl (0.2-1); Globulin 3.9 gm/dl (2.5-4.0); Total Protein 7.4 gm/dl (6.4-8.2); Troponin I 0.016 ng/ml (0-0.045)
[2020-05-18 09:36] LABS: Folate (Folic Acid) > 20.00 ng/ml (>5.38); Vitamin B12 987 pg/ml (193-986)
[2020-05-18 10:52] LABS: Ferritin 35.3 ng/ml (8-388)
--- NOTE | 2020-05-18 13:00 | Discharge Summary ---
Date of Service May 18, 2020 Admission HPI Per Admitting Provider Pt is a 80yo admitted with ?pancreatitis after presenting with epigastric pain. States that he had 2 candy bars before bed and was awoken with epigastric pain, nonradiating. No associated diaphoresis, N/V, SOB or palpitations. Took a nitroglycerin at home which did NOT help with the pain. Thought he might be having a heart attack so he came to the ED. States he has had pancreatitis before and was treated in this hospital for it. States he has an appetite but usually does not eat at night. Also has a signifcant cardiac hx with placement of a defibrillator. Admission Exam Per Admitting Provider General: Alert, oriented. No acute distress Skin: No noted rashes or bruises Psych: Appropriate mood and affect Neuro: No gross deficits HEENT: NC/AT Chest: Nontender to palpation. CV: RRR, Normal s1, s2. No murmurs appreciated Resp: Breath sounds clear and decreased bilaterally, no increased effort of breathing. Abdomen: BS+. Soft, nontender, nondistended. No guarding. Extremities: Trace edema in lower extremities bilaterally. Principal Diagnosis acute pancreatitis Discharge Exam Constitutional WD/WN, vitals as above no acute distress Respiratory normal respiratory effort, lungs clear to auscultation Cardiovascular RRR, no murmur, no edema Heart Sounds: normal S1 and normal S2 Gastrointestinal (Abdomen) normal bowel sounds, soft, nontender, no hepatosplenomegaly Skin no rashes, warm and dry Psychiatric A+Ox3, euthymic affect Discharge Data Allergies Allergy/AdvReac Type Severity Reaction Status Date / Time doxycycline Allergy Unknown Verified 05/17/20 23:11 levofloxacin Allergy Unknown Verified 05/17/20 23:11 Consultations 05/18/20 00:05 ED Decision to Admit Stat Ordered Studies 05/18/20 01:28 US abdomen limited Urgent Hospital Course (1) Acute pancreatitis: Pt is a 80yo admitted with pancreatitis after presenting with epigastric pain. Acute Pancreatitis -Pt states he had epigastric pain that woke him up from sleep, no longer present -EKG with sinus bradycardia, HR 59, qtc 432, troponins normal -Lipase of 3480, Hx of cholecystectomy, denies alcohol use. - Abd US: 1. Mild intra and extra hepatic biliary ductal dilatation, likely similar to CT of January 31, 2017. No common bile duct calculi identified. This ductal dilatation is likely related to previous cholecystectomy however could be correlated with liver function tests. 2. Borderline dilatation of main pancreatic duct. No peripancreatic fluid collections. Pancreatic head and tail slightly obscured. - Despite Abd US, epigastric pain and lipase 3 times over the upper limit of normal enough to diagnose acute pancreatitis - Patient made NPO overnight, given IV fluids - Diet was advanced as he was not having pain on examination - Tolerated well, deemed fit for discharge Macrocytosis -Anemic with MCV of 100 -Folate and B12 levels WNL - Iron studies WNL Prostatitis -chronic problem for this pt, follows with Urology -Was due to start another round of Bactrim BID -continued home Bactrim CKD Stage 3 -Cr WNL CAD -continue home aspirin 81mg daily -continue home carvedilol 12.5mg BID -continue home atorvastatin 40mg -continue home lisinopril 2.5mg HTN -continue home carvedilol and lisinopril as above BPH -continue home dutasteride 0.5mg-tamsulosin 0.4mg Hx of cerebral infarction -continue home Plavix 75mg FEN/GI: Heart Healthy CODE STATUS: Full code Dispo: Home (2) Chest pain: (3) Dysuria: (4) CKD (chronic kidney disease), stage III: (5) Benign prostatic hyperplasia with urinary obstruction: (6) Chronic prostatitis: (7) Occlusion and stenosis of carotid artery with cerebral infarction: (8) Hypertension: (9) Hypercholesteremia: (10) CAD (coronary artery disease): Total Time Total Time Spent Total Time Spent (In Minutes): see Attending attestation Discharge Plan Discharge Items Patient Disposition: Home - Self-Care Reason For Visit: EPIGASTRIC PAIN Discharge Diagnosis: Acute pancreatitis Activity: Per Instructions section Non-emergency contact: Primary Care Provider Call non-emergency contact if: your symptoms worsen, your pain is not controlled and your temperature is above 101 Follow-up/Referrals: Cleveland Blair III, MD [Primary Care Provider] - Diet: Heart Healthy Addtl Attending Provider Instructions: You came to [facility] due to pain in your chest. You had EKG and laboratories done that ruled out acute cardiac causes. However, you were found to have elevated lipase, which pointed to you having acute pancreatitis. You were started on intravenous fluids and progressed well. Your diet was advanced and you were able to tolerate oral intake well. As such, you were deemed fit for discharge. Please continue to take your previous medications as instructed. Follow up with your PCP to discuss your hospital admission. If you develop worsened symptoms, or new symptoms that are of concern to you, please seek emergency care. Pending Studies at Discharge: No Stand-Alone Forms: [facility], Smoking Cessation Medications and DC Order Prescriptions: Continued dutasteride-tamsulosin [Imelda] 0.5-0.4 mg capsule, ER multiphase 24 hr 1 cap PO PM Qty: 90 RF: 3 atorvastatin 40 mg tablet 40 mg PO DAILY Qty: 90 RF: 3 clopidogrel 75 mg tablet 75 mg PO DAILY Qty: 90 RF: 3 carvedilol 12.5 mg tablet 12.5 mg PO BID Qty: 180 RF: 3 amoxicillin 500 mg capsule 2,000 mg PO ONCE Qty: 10 RF: 1 sulfamethoxazole-trimethoprim [Bactrim] 400-80 mg tablet 1 tab PO BID 30 Days Qty: 60 RF: 0 aspirin [Adult Low Dose Aspirin] 81 mg tablet,delayed release (DR/EC) 81 mg PO DAILY Qty: 30 RF: 2 multivitamin [Daily Multi-Vitamin] tablet 1 tab PO DAILY RF: 0 Lactobacillus acidophilus 1 billion cell tablet 1,000 mmu cells PO DAILY RF: 0 nitroglycerin 400 mcg/spray spray,non-aerosol 1 spray translingual UD PRN (Reason: Chest Pain) RF: 0 docusate sodium [Colace] 100 mg Capsule 100 mg PO DAILY RF: 0 lisinopril 5 mg tablet 2.5 mg PO DAILY RF: 0 polyethylene glycol 3350 [Miralax] 17 gram powder in packet 17 g PO DAILY RF: 0 cholecalciferol (vitamin D3) 1,000 unit capsule 1,000 unit PO DAILY RF: 0 Discharge Orders: Discharge Order (Routine); Ordered 05/18/20 Ordered By: Aron Benavides Admission Data Admit Date/Time: 05/18/20 01:10 Attending Provider: Delia Cabrera Admit Provider: Miriam Jauregui Primary Care Provider: Cleveland Blair III Other Providers: Concepcion Torres Other Interventions: Discharge Summary Assessment (RN) Last Done: 05/18/20 18:28 Supervising Physician Co-Signing Physician Notes Resident Physician Supervision Note: I independently interviewed and examined the patient and verified the sin history and physical, reviewed labs and image studies, discussed the case with the resident Dr. Benavides and agree with the findings and care plan. Resident Activity Tracking Resident Involvement: Resident Care Provided Care Provided: Adult Hospital Medicine
--- NOTE | 2020-05-18 15:26 | Electrocardiogram Report ---
Test Reason : Blood Pressure : / mmHG Vent. Rate : 081 BPM Atrial Rate : 081 BPM P-R Int : 128 ms QRS Dur : 104 ms QT Int : 388 ms P-R-T Axes : 001 024 135 degrees QTc Int : 450 ms Poor data quality, interpretation may be adversely affected Normal sinus rhythm Inferior infarct (cited on or before 23-SEP-2010) Anterior infarct (cited on or before 23-SEP-2010) Abnormal ECG When compared with ECG of 30-JAN-2017 22:22, T wave inversion more evident in Lateral leads Confirmed by Jose Sampson ([id number]) on 05/18/2020 3:26:09 PM Referred By: REFERRED SELF Confirmed By:Jose Sampson
--- NOTE | 2020-05-19 02:18 | Billing Data ---
Date of Service May 18, 2020 Coding Level of Care Code 42443 Initial Inpt Care Lvl 2
== END 2020-05-18 19:41 | disposition home or self-care (01) ==
LOC: ED 22:28 → SUATTDRO 05-18 01:10 → 3W 05-18 01:10 → INTOOBSV 05-18 01:10 → 3W 05-18 01:55

== ENCOUNTER 2022-02-06 08:38 | Observation (INO) ==
[2022-02-06] MEDS ORDERED: ACETAMINOPHEN 500 MG TAB PO STA (09:15)
[2022-02-06] MEDS ORDERED: ONDANSETRON INJ 2 MG/ML 2 ML VIAL IV STA (09:15)
--- NOTE | 2022-02-06 09:18 | Emergency Department Note ---
History of Present Illness General Chief Complaint: Shortness of Breath/Dyspnea Stated Complaint: FATIGUE, SHORTNESS OF BREATH, SWOLLEN ANKLES, FEV Time Seen by Provider: 02/06/22 08:52 History of Present Illness Provider Complaint: + fever ([id number]), + cough and + nasal congestion Onset (ago): 1 day(s) Duration: + constant Maximum Pain Intensity: 4 Relieved By: + nothing Exacerbated By: + nothing Able to tolerate fluids by mouth: Yes Context: no sick contacts, no recent travel or no recent dental work Associated symptoms: + chills, + myalgias, + headache, + cough, + shortness of breath and + nausea; no rhinorrhea, no stiff neck, no abdominal pain, no vomiting, no diarrhea, no dysuria or no rash HPI Narrative: Not vaccinated against COVID-19 Home Medications Medication Instructions Recorded Confirmed Type aspirin 81 mg tablet,delayed 81 mg PO DAILY #30 tabs 01/12/19 02/04/22 Rx release (Adult Low Dose Aspirin) Lactobacillus acidophilus 1 1,000 mmu cells PO DAILY 02/19/19 02/04/22 History billion cell tablet cholecalciferol (vitamin D3) 25 1,000 unit PO DAILY 02/19/19 02/04/22 History mcg (1,000 unit) capsule multivitamin (Daily Multi-Vitamin 1 tab PO DAILY 02/19/19 02/04/22 History tablet) polyethylene glycol 3350 17 gram 17 g PO DAILY 02/19/19 02/04/22 History oral powder packet (Miralax) docusate sodium 100 mg capsule 100 mg PO DAILY 05/17/20 02/04/22 History (Colace) mometasone 0.1 % topical solution 1 applic topical DAILY PRN skin 02/16/21 02/04/22 Rx irritation #60 mL nitroglycerin 0.4 mg sublingual 0.4 mg sublingual Q5M PRN chest 02/26/21 02/04/22 Rx tablet pain #30 tabs dutasteride 0.5 mg-tamsulosin ER 1 cap PO PM #90 caps 05/10/21 02/04/22 Rx 0.4 mg capsule ext.release 24hr mphas (Imelda) amoxicillin 500 mg capsule 2,000 mg PO ONCE 0 days #16 caps 06/07/21 02/04/22 Rx atorvastatin 40 mg tablet 40 mg PO DAILY #90 tabs 04/19/22 08/08/22 Rx clopidogrel 75 mg tablet 75 mg PO DAILY #90 tabs 11/06/21 02/04/22 Rx carvedilol 12.5 mg tablet 12.5 mg PO BID #60 tabs 11/08/21 02/04/22 Rx dutasteride 0.5 mg capsule 0.5 mg PO DAILY #90 caps 12/03/21 02/04/22 Rx tamsulosin 0.4 mg capsule (Flomax) 0.4 mg PO QPM #90 caps 12/03/21 02/04/22 Rx sulfamethoxazole 800 1 tab PO BID PRN 02/04/22 History mg-trimethoprim 160 mg tablet (Bactrim DS) Allergies Allergy/AdvReac Type Severity Reaction Status Date / Time doxycycline Allergy Unknown Verified 02/04/22 09:41 levofloxacin Allergy Unknown Verified 02/04/22 09:41 Past Med/Surg History Medical History Actinic keratosis Acute myocardial infarction Acute pancreatitis Anemia Anemia Benign prostate hyperplasia Bladder pain Cardiomyopathy Chest pain Coronary artery arteriosclerosis Elevated prostate specific antigen (PSA) Frequency of micturition History of Clostridium difficile infection History of malignant melanoma Hx of pancreatitis Hx of rosacea Insomnia Left ventricular thrombosis Microscopic hematuria Nocturia 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 Stroke syndrome Surgical History History of cardiac cath History of transurethral resection of prostate Hx of cholecystectomy Hx of melanoma excision Hx of prostatectomy Family History Father Acute myocardial infarction Mother Gastric cancer Brother Laryngeal cancer Social History Smoking Status: Never smoker Second Hand Exposure: No; Hx Alcohol Use: No Hx Substance Use: No Preferred Language: Nigerian Communication Ability: Effective 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 Beliefs That Will Affect Care: None Current Living Situation: Spouse Feels Safe at Home: Yes caffeine: Yes Seatbelt Use: always Assistive Devices: None Review of Systems A total of 10 systems reviewed and were otherwise negative Physical Exam Vital Signs: Vital Signs - 24 hr 02/06/22 08:45 02/06/22 09:15 02/06/22 09:15 Temperature 37.8 C H Temperature Source Temporal Artery Sc an Pulse Rate 110 H Pulse Rate [Apical ] Pulse Rate from Sp O2 Sensor Pulse Rhythm Regular Pulse Strength Normal Respiratory Rate 20 Respiratory Effort / Characteristics Non-Labored Sponta neous Respiratory Depth Normal Respiratory Patter n Regular Blood Pressure 141/72 H Blood Pressure [Le ft Arm] Blood Pressure Kelli n 95 Blood Pressure Kelli n [Left Arm] Blood Pressure Pos ition Sitting Pulse Oximetry 96 Oxygen Delivery Me thod Room Air Room Air Sepsis Recent Feve r Within 48 Hours No Sepsis New/Unexpla ined Change in Men lopez Status N/A Sepsis Action Take n by Nursing No Action Required 02/06/22 09:15 02/06/22 09:51 02/06/22 10:00 Temperature Temperature Source Pulse Rate 93 H Pulse Rate [Apical ] Pulse Rate from Sp O2 Sensor 93 H Pulse Rhythm Pulse Strength Respiratory Rate 22 Respiratory Effort / Characteristics Respiratory Depth Respiratory Patter n Blood Pressure 130/73 Blood Pressure [Le ft Arm] Blood Pressure Kelli n 92 Blood Pressure Kelli n [Left Arm] Blood Pressure Pos ition Pulse Oximetry 94 95 Oxygen Delivery Me thod Room Air Room Air Sepsis Recent Feve r Within 48 Hours Sepsis New/Unexpla ined Change in Men lopez Status Sepsis Action Take n by Nursing 02/06/22 10:00 02/06/22 10:30 02/06/22 10:30 Temperature Temperature Source Pulse Rate 91 H 90 Pulse Rate [Apical ] Pulse Rate from Sp O2 Sensor 91 H 91 H Pulse Rhythm Pulse Strength Respiratory Rate 30 H 26 H Respiratory Effort / Characteristics Respiratory Depth Respiratory Patter n Blood Pressure 132/72 Blood Pressure [Le ft Arm] Blood Pressure Kelli n 92 Blood Pressure Kelli n [Left Arm] Blood Pressure Pos ition Pulse Oximetry 94 91 Oxygen Delivery Me thod Room Air Room Air Sepsis Recent Feve r Within 48 Hours Sepsis New/Unexpla ined Change in Men lopez Status Sepsis Action Take n by Nursing 02/06/22 11:00 02/06/22 11:00 02/06/22 11:36 Temperature 37.2 C Temperature Source Oral Pulse Rate 87 Pulse Rate [Apical ] Pulse Rate from Sp O2 Sensor 86 Pulse Rhythm Pulse Strength Respiratory Rate 27 H Respiratory Effort / Characteristics Respiratory Depth Respiratory Patter n Blood Pressure 120/67 Blood Pressure [Le ft Arm] Blood Pressure Kelli n 84 Blood Pressure Kelli n [Left Arm] Blood Pressure Pos ition Pulse Oximetry 93 Oxygen Delivery Me thod Room Air Sepsis Recent Feve r Within 48 Hours Sepsis New/Unexpla ined Change in Men lopez Status Sepsis Action Take n by Nursing 02/06/22 11:30 02/06/22 12:00 02/06/22 12:00 Temperature Temperature Source Pulse Rate 89 80 Pulse Rate [Apical ] Pulse Rate from Sp O2 Sensor Pulse Rhythm Pulse Strength Respiratory Rate 25 H 22 Respiratory Effort / Characteristics Respiratory Depth Respiratory Patter n Blood Pressure 117/72 114/68 114/68 Blood Pressure [Le ft Arm] Blood Pressure Kelli n 87 83 83 Blood Pressure Kelli n [Left Arm] Blood Pressure Pos ition Pulse Oximetry Oxygen Delivery Me thod Sepsis Recent Feve r Within 48 Hours Sepsis New/Unexpla ined Change in Men lopez Status Sepsis Action Take n by Nursing 02/06/22 12:30 02/06/22 12:46 02/06/22 13:00 Temperature Temperature Source Pulse Rate Pulse Rate [Apical ] Pulse Rate from Sp O2 Sensor Pulse Rhythm Pulse Strength Respiratory Rate Respiratory Effort / Characteristics Respiratory Depth Respiratory Patter n Blood Pressure 113/70 114/77 101/65 Blood Pressure [Le ft Arm] Blood Pressure Kelli n 84 89 77 Blood Pressure Kelli n [Left Arm] Blood Pressure Pos ition Pulse Oximetry Oxygen Delivery Me thod Sepsis Recent Feve r Within 48 Hours Sepsis New/Unexpla ined Change in Men lopez Status Sepsis Action Take n by Nursing 02/06/22 13:30 02/06/22 14:00 02/06/22 14:30 Temperature Temperature Source Pulse Rate Pulse Rate [Apical ] Pulse Rate from Sp O2 Sensor Pulse Rhythm Pulse Strength Respiratory Rate Respiratory Effort / Characteristics Respiratory Depth Respiratory Patter n Blood Pressure 127/67 123/68 123/76 Blood Pressure [Le ft Arm] Blood Pressure Kelli n 87 86 91 Blood Pressure Kelli n [Left Arm] Blood Pressure Pos ition Pulse Oximetry Oxygen Delivery Me thod Sepsis Recent Feve r Within 48 Hours Sepsis New/Unexpla ined Change in Men lopez Status Sepsis Action Take n by Nursing 02/06/22 15:29 Temperature 37.1 C Temperature Source Oral Pulse Rate Pulse Rate [Apical ] 85 Pulse Rate from Sp O2 Sensor Pulse Rhythm Pulse Strength Respiratory Rate 22 Respiratory Effort / Characteristics Respiratory Depth Normal Respiratory Patter n Blood Pressure Blood Pressure [Le ft Arm] 138/70 Blood Pressure Kelli n Blood Pressure Kelli n [Left Arm] 92 Blood Pressure Pos ition Pulse Oximetry 92 Oxygen Delivery Me thod Room Air Sepsis Recent Feve r Within 48 Hours Sepsis New/Unexpla ined Change in Men lopez Status Sepsis Action Take n by Nursing Physical Exam: Physical Exam GENERAL: He is oriented to person, place, and time. He appears well-developed and well-nourished. He does not appear distressed. HENT: Exam performed. - Head: Normocephalic and atraumatic. - Right Ear: External ear normal. No mastoid tenderness. - Left Ear: External ear normal. No mastoid tenderness. - Mouth/Throat: The oropharynx is clear and moist. No trismus in the jaw. No dental abscesses or uvula swelling. No oropharyngeal exudate or tonsillar abscesses. EYES: Conjunctivae and EOM are normal. Pupils are equal, round, and reactive to light. Right eye exhibits no discharge. Left eye exhibits no discharge. No scleral icterus. NECK: Normal range of motion. Neck supple. No JVD present. No spinous process tenderness present. No carotid bruit present. No rigidity. No tracheal deviation and normal range of motion present. No Brudzinski's sign and no Kernig's sign noted. CV: Normal rate, regular rhythm, normal heart sounds and intact distal pulses. There is no peripheral edema. Palpable radial pulses bue. PULM/CHEST: Effort normal and breath sounds normal. No respiratory distress. No stridor. He has no wheezes. He has no rales. - Chest Wall: He exhibits no tenderness. ABD: The abdomen is soft. Bowel sounds are normal. He has no distension. No mass is present. There is no tenderness. There is no rebound, no guarding, no Castaneda's sign and no tenderness at McBurney's point. Rovsig negative. MUSC/SKEL: Normal range of motion. There is no peripheral edema, tenderness or deformity. LYMPH: No cervical adenopathy. NEURO: He is alert and oriented to person, place, and time. He has normal stren gth. No cranial nerve deficit or sensory deficit. Coordination and gait normal. GCS eye subscore is 4. GCS verbal subscore is 5. GCS motor subscore is 6. Cerebellar tests wnl. SKIN: Skin is warm and dry. He is not diaphoretic. PSYCH: He has a normal mood and affect. Behavior is normal. Judgment and thought content normal. Course Course 0852: The patient was evaluated in room C7. A complete history and physical exam was performed Cardiac monitoring: An order was placed for continuous cardiac monitoring. The monitor shows a rate of 110 with sinus rhythm 1155: Vital signs stable. Patient is COVID-19 positive. Patient's initial troponin is elevated. Will obtain delta troponin given the patient's report shortness of breath. 1350: Vital signs stable. Patient's delta troponin does show a more than 20% increase. Patient will be admitted to the [facility] team given his elevated troponins dyspnea and COVID-19. Dr. Adam team made aware. Administered Medications Discontinued Medications Acetaminophen (Acetaminophen 500 Mg Tab) 1,000 mg PO NOW STA Stop: 02/06/22 09:16 Last Admin: 02/06/22 10:16 Dose: 1,000 mg Documented By: MARY Lidocaine HCl (Xylocaine 1%/Sod Bicarb 20 Ml Vial) 20 ml INFIL NOW ONE Stop: 02/06/22 12:20 Last Admin: 02/06/22 12:53 Dose: Not Given Documented By: JUVENTINO Ondansetron HCl (Ondansetron Inj 2 Mg/Ml 2 Ml Vial) 4 mg IV NOW STA Stop: 02/06/22 09:16 Last Admin: 02/06/22 10:16 Dose: 4 mg Documented By: MARY Medical Decision Making Laboratory Data Result diagrams: 02/06/22 09:36 02/06/22 09:36 Lab Results 02/06/22 02/06/22 02/06/22 Range/Units 09:36 09:36 09:36 WBC 3.44 L (4.8-10.8) K/ul RBC 3.66 L (4.63-6.08) M/uL Hgb 12.8 L (14.0-18.0) g/dl Hct 37.9 L (40.1-51.0) % MCV 103.6 H (80.0-100.0) fL MCH 35.0 H (25.0-34.0) pg MCHC 33.8 (32.0-36.0) g/dL RDW Std Deviation 44.0 (36.4-46.3) fL RDW Coeff of Mitzy 11.4 L (11.5-14.5) % Plt Count 110 L (130-400) K/uL MPV 9.5 (9.4-12.4) fL Immature Gran % (Auto) 0.6 % Neut % (Auto) 77.3 % Lymph % (Auto) 6.4 % [place] % (Auto) 14.2 % Eos % (Auto) 0.6 % Baso % (Auto) 0.9 % Neut # (Auto) 2.66 (1.4-6.5) K/uL Lymph # (Auto) 0.22 L (1.2-3.4) K/uL [place] # (Auto) 0.49 (0.24-0.82) K/uL Eos # (Auto) 0.02 (0-0.50) K/uL Baso # (Auto) 0.03 (0-0.2) K/uL Immature Gran # (Auto) 0.02 (0.00-0.02) K/uL PT (9.0-12.0) Seconds INR (0.9-1.1) APTT (21.0-31.0) Seconds PTT Ratio VBG pH 7.39 (7.36-7.41) VBG pCO2 47 (38-50) mmHg VBG pO2 20 mmHg VBG HCO3 29 mmol/L VBG O2 Saturation < 60.0 % VBG Base Excess 2.8 mEq/L Sodium (136-145) mmol/L Potassium (3.5-5.1) mmol/L Chloride (98-107) mmol/L Carbon Dioxide (21-32) mmol/L Anion Gap (3-11) BUN (6-23) mg/dl Creatinine (0.6-1.4) mg/dl Est Cr Clr Drug Dosing Est GFR ( Amer) ml/min Est GFR (Non-Af Amer) ml/min BUN/Creatinine Ratio (10-20) Glucose (70-99(Fasting)) mg/dl Calcium (8.5-10.1) mg/dl Magnesium 1.9 (1.7-2.4) mg/dl Troponin I High Sens (0-20) pg/ml Lipase (11-82) U/L Urine Color Urine Appearance (Clear) Urine pH (4.5-7.5) Ur Specific [place] (1.000-1.030) Urine Protein (Negative) Urine Glucose (UA) (Negative) Urine Ketones (Negative) Urine Blood (Negative) Urine Nitrite (Negative) Urine Bilirubin (Negative) Urine Urobilinogen (Negative) Ur Leukocyte Esterase (Negative) Urine WBC (Auto) (0-5) /hpf Urine RBC (Auto) (0-4) /hpf U Hyaline Cast (Auto) (0-5) /lpf U Epithel Cells (Auto) (0-5) /lpf Urine Bacteria (Auto) (Negative) SARS-CoV-2 (PCR) (Negative) Influenza Type A (PCR) (Neg) Influenza Type B (PCR) (Neg) RSV (RT-PCR) (Neg) 02/06/22 02/06/22 02/06/22 Range/Units 09:36 09:36 09:44 WBC (4.8-10.8) K/ul RBC (4.63-6.08) M/uL Hgb (14.0-18.0) g/dl Hct (40.1-51.0) % MCV (80.0-100.0) fL MCH (25.0-34.0) pg MCHC (32.0-36.0) g/dL RDW Std Deviation (36.4-46.3) fL RDW Coeff of Mitzy (11.5-14.5) % Plt Count (130-400) K/uL MPV (9.4-12.4) fL Immature Gran % (Auto) % Neut % (Auto) % Lymph % (Auto) % [place] % (Auto) % Eos % (Auto) % Baso % (Auto) % Neut # (Auto) (1.4-6.5) K/uL Lymph # (Auto) (1.2-3.4) K/uL [place] # (Auto) (0.24-0.82) K/uL Eos # (Auto) (0-0.50) K/uL Baso # (Auto) (0-0.2) K/uL Immature Gran # (Auto) (0.00-0.02) K/uL PT 11.4 (9.0-12.0) Seconds INR 1.1 (0.9-1.1) APTT 30.1 (21.0-31.0) Seconds PTT Ratio 1.1 VBG pH (7.36-7.41) VBG pCO2 (38-50) mmHg VBG pO2 mmHg VBG HCO3 mmol/L VBG O2 Saturation % VBG Base Excess mEq/L Sodium 136 (136-145) mmol/L Potassium 4.1 (3.5-5.1) mmol/L Chloride 104 (98-107) mmol/L Carbon Dioxide 27 (21-32) mmol/L Anion Gap 5 (3-11) BUN 13 (6-23) mg/dl Creatinine 1.16 (0.6-1.4) mg/dl Est Cr Clr Drug Dosing Not Reportable Est GFR ( Amer) 68.1 ml/min Est GFR (Non-Af Amer) 58.7 ml/min BUN/Creatinine Ratio 11.2 (10-20) Glucose 103 H (70-99(Fasting)) mg/dl Calcium 9.1 (8.5-10.1) mg/dl Magnesium (1.7-2.4) mg/dl Troponin I High Sens 24.8 H (0-20) pg/ml Lipase 20 (11-82) U/L Urine Color Urine Appearance (Clear) Urine pH (4.5-7.5) Ur Specific [place] (1.000-1.030) Urine Protein (Negative) Urine Glucose (UA) (Negative) Urine Ketones (Negative) Urine Blood (Negative) Urine Nitrite (Negative) Urine Bilirubin (Negative) Urine Urobilinogen (Negative) Ur Leukocyte Esterase (Negative) Urine WBC (Auto) (0-5) /hpf Urine RBC (Auto) (0-4) /hpf U Hyaline Cast (Auto) (0-5) /lpf U Epithel Cells (Auto) (0-5) /lpf Urine Bacteria (Auto) (Negative) SARS-CoV-2 (PCR) POSITIVE A* (Negative) Influenza Type A (PCR) Negative (Neg) Influenza Type B (PCR) Negative (Neg) RSV (RT-PCR) Negative (Neg) 02/06/22 02/06/22 Range/Units 11:53 12:45 WBC (4.8-10.8) K/ul RBC (4.63-6.08) M/uL Hgb (14.0-18.0) g/dl Hct (40.1-51.0) % MCV (80.0-100.0) fL MCH (25.0-34.0) pg MCHC (32.0-36.0) g/dL RDW Std Deviation (36.4-46.3) fL RDW Coeff of Mitzy (11.5-14.5) % Plt Count (130-400) K/uL MPV (9.4-12.4) fL Immature Gran % (Auto) % Neut % (Auto) % Lymph % (Auto) % [place] % (Auto) % Eos % (Auto) % Baso % (Auto) % Neut # (Auto) (1.4-6.5) K/uL Lymph # (Auto) (1.2-3.4) K/uL [place] # (Auto) (0.24-0.82) K/uL Eos # (Auto) (0-0.50) K/uL Baso # (Auto) (0-0.2) K/uL Immature Gran # (Auto) (0.00-0.02) K/uL PT (9.0-12.0) Seconds INR (0.9-1.1) APTT (21.0-31.0) Seconds PTT Ratio VBG pH (7.36-7.41) VBG pCO2 (38-50) mmHg VBG pO2 mmHg VBG HCO3 mmol/L VBG O2 Saturation % VBG Base Excess mEq/L Sodium (136-145) mmol/L Potassium (3.5-5.1) mmol/L Chloride (98-107) mmol/L Carbon Dioxide (21-32) mmol/L Anion Gap (3-11) BUN (6-23) mg/dl Creatinine (0.6-1.4) mg/dl Est Cr Clr Drug Dosing Est GFR ( Amer) ml/min Est GFR (Non-Af Amer) ml/min BUN/Creatinine Ratio (10-20) Glucose (70-99(Fasting)) mg/dl Calcium (8.5-10.1) mg/dl Magnesium (1.7-2.4) mg/dl Troponin I High Sens 30.6 H (0-20) pg/ml Lipase (11-82) U/L Urine Color Yellow Urine Appearance Clear (Clear) Urine pH 6.0 (4.5-7.5) Ur Specific [place] 1.022 (1.000-1.030) Urine Protein Trace H (Negative) Urine Glucose (UA) Negative (Negative) Urine Ketones Negative (Negative) Urine Blood Negative (Negative) Urine Nitrite Negative (Negative) Urine Bilirubin Negative (Negative) Urine Urobilinogen Negative (Negative) Ur Leukocyte Esterase Negative (Negative) Urine WBC (Auto) 1-5 (0-5) /hpf Urine RBC (Auto) 0-4 (0-4) /hpf U Hyaline Cast (Auto) 1-5 (0-5) /lpf U Epithel Cells (Auto) 20-30 H (0-5) /lpf Urine Bacteria (Auto) Negative (Negative) SARS-CoV-2 (PCR) (Negative) Influenza Type A (PCR) (Neg) Influenza Type B (PCR) (Neg) RSV (RT-PCR) (Neg) Imaging Data Radiologist's Impression: Chest X-Ray 02/06/22 08:54 XR chest 1V portable CLINICAL HISTORY: Chest Pain TECHNIQUE: Single frontal radiograph of the chest was obtained. Comparison: Comparison is made to chest radiograph 09/26/2021 FINDINGS: Pacemaker defibrillator is seen. The cardiomediastinal silhouette is normal. The lungs are clear. No evidence of pleural effusion or pneumothorax. IMPRESSION: No acute chest disease. ACT 112: Negative or not required by law. Electronically signed by: Jhonathan Fournier M.D. 02/06/2022 9:26 AM ECG Data Indication: SOB/dyspnea Rate (beats per minute): 101 Rhythm: sinus tachycardia Findings: no ST depression, no ST elevation or no prolonged QT MDM Narrative 0852: The patient was evaluated in room C7. A complete history and physical exam was performed Cardiac monitoring: An order was placed for continuous cardiac monitoring. The monitor shows a rate of 110 with sinus rhythm 1155: Vital signs stable. Patient is COVID-19 positive. Patient's initial troponin is elevated. Will obtain delta troponin given the patient's report shortness of breath. 1350: Vital signs stable. Patient's delta troponin does show a more than 20% increase. Patient will be admitted to the [facility] team given his elevated troponins dyspnea and COVID-19. Dr. Adam team made aware. Impression & Plan COVID-19, Elevated troponin Discharge Plan Visit Data Chief Complaint: Shortness of Breath/Dyspnea Stated Complaint: FATIGUE, SHORTNESS OF BREATH, SWOLLEN ANKLES, FEV ED Provider: Chris Delaney Discharge Problem: COVID-19, Elevated troponin Patient Disposition: Admitted As Inpatient Forms Stand Alone Forms: My [facility] Prescriptions Prescriptions: No Action amoxicillin 500 mg capsule 2,000 mg PO ONCE Qty: 16 1RF Rx Instructions: Take four capsules by mouth one hour before procedure or as directed. atorvastatin 40 mg tablet 40 mg PO DAILY Qty: 90 3RF clopidogrel 75 mg tablet 75 mg PO DAILY Qty: 90 3RF carvedilol 12.5 mg tablet 12.5 mg PO BID Qty: 60 0RF dutasteride 0.5 mg capsule 0.5 mg PO DAILY Qty: 90 1RF tamsulosin [Flomax] 0.4 mg capsule 0.4 mg PO QPM Qty: 90 1RF Rx Instructions: Take one capsule at bedtime. aspirin [Adult Low Dose Aspirin] 81 mg tablet,delayed release (DR/EC) 81 mg PO DAILY Qty: 30 2RF multivitamin [Daily Multi-Vitamin] tablet 1 tab PO DAILY Label Comments: confirm if patient is still taking this medication mometasone 0.1 % solution 1 applic TOP DAILY PRN (Reason: skin irritation) Qty: 60 1RF Rx Instructions: Apply to areas of the trunk and extremities 1-2 times daily for up to 2 weeks as needed. nitroglycerin 0.4 mg tablet, sublingual 0.4 mg sublingual Q5M PRN (Reason: chest pain) Qty: 30 3RF Rx Instructions: do not exceed 3 doses per episode Lactobacillus acidophilus 1 billion cell tablet 1,000 mmu cells PO DAILY Label Comments: confirm if patient is still taking this medication dutasteride-tamsulosin [Imelda] 0.5-0.4 mg capsule, ER multiphase 24 hr 1 cap PO PM Qty: 90 3RF Hold Instructions: Not stocked at pharmacy sulfamethoxazole-trimethoprim [Bactrim DS] 800-160 mg tablet 1 tab PO BID PRN docusate sodium [Colace] 100 mg Capsule 100 mg PO DAILY polyethylene glycol 3350 [Miralax] 17 gram powder in packet 17 g PO DAILY Label Comments: Dissolve and mix 1 cap full in 8oz of water, juice, or tea cholecalciferol (vitamin D3) 1,000 unit capsule 1,000 unit PO DAILY Label Comments: Confirm if patient is still taking this medication Referrals Referrals: Dana Aquino CRNP [Primary Care Provider] -
--- NOTE | 2022-02-06 09:28 | XRay Report ---
XR chest 1V portable CLINICAL HISTORY: Chest Pain TECHNIQUE: Single frontal radiograph of the chest was obtained. Comparison: Comparison is made to chest radiograph 09/26/2021 FINDINGS: Pacemaker defibrillator is seen. The cardiomediastinal silhouette is normal. The lungs are clear. No evidence of pleural effusion or pneumothorax. IMPRESSION: No acute chest disease. ACT 112: Negative or not required by law. Electronically signed by: Jhonathan Fournier M.D. 02/06/2022 9:26 AM
[2022-02-06 09:53] LABS: Base Excess VBG 2.8 mEq/L; Basophils # (auto) 0.03 K/uL (0-0.2); Basophils % (auto) 0.9 %; Eosinophils # (auto) 0.02 K/uL (0-0.50); Eosinophils % (auto) 0.6 %; HCO3 VBG 29 mmol/L; Hematocrit (blood only) 37.9 % (40.1-51.0); Hemoglobin 12.8 g/dl (14.0-18.0); Immature Granulocytes # (auto) 0.02 K/uL (0.00-0.02); Immature Granulocytes % (auto) 0.6 %; Lymphocytes # (auto) 0.22 K/uL (1.2-3.4); Lymphocytes % (auto) 6.4 %; Mean Platelet Volume 9.5 fL (9.4-12.4); Monocytes # (auto) 0.49 K/uL (0.24-0.82); Monocytes % (auto) 14.2 %; Neutrophils # (auto) 2.66 K/uL (1.4-6.5); Neutrophils % (auto) 77.3 %; Oxygen Saturation VBG < 60.0 %; PCO2 VBG 47 mmHg (38-50); PO2 VBG 20 mmHg; Platelet Count 110 K/uL (130-400); White Blood Count 3.44 K/ul (4.8-10.8); pH VBG 7.39 (7.36-7.41)
[2022-02-06 10:10] LABS: INR 1.1 (0.9-1.1); Partial Thromboplastin Ratio 1.1; Partial Thromboplastin Time 30.1 Seconds (21.0-31.0); Prothrombin Time 11.4 Seconds (9.0-12.0)
[2022-02-06 10:16] LABS: Mean Corpuscular Hgb Conc 33.8 g/dL (32.0-36.0); Mean Corpuscular Volume 103.6 fL (80.0-100.0); RDW Coefficient of Variation 11.4 % (11.5-14.5); Red Blood Count 3.66 M/uL (4.63-6.08)
[2022-02-06 10:21] LABS: Anion Gap 5 (3-11); BUN Creatinine Ratio 11.2 (10-20); Blood Urea Nitrogen 13 mg/dl (6-23); Calcium 9.1 mg/dl (8.5-10.1); Carbon Dioxide 27 mmol/L (21-32); Chloride 104 mmol/L (98-107); Est GFR (African American) 68.1 ml/min; Est GFR (Non-African American) 58.7 ml/min; Glucose 103 mg/dl (70-99(Fasting)); Lipase 20 U/L (11-82); Potassium 4.1 mmol/L (3.5-5.1); Sodium 136 mmol/L (136-145)
[2022-02-06 10:22] LABS: Troponin I High Sensitivity 24.8 pg/ml (0-20)
[2022-02-06 10:35] LABS: Influenza A virus by PCR Negative (Neg); Influenza B virus by PCR Negative (Neg); RSV by PCR Negative (Neg)
[2022-02-06 10:39] LABS: SARS CoV2 RNA(COVID-19) InHosp POSITIVE (Negative)
[2022-02-06] MEDS ORDERED: XYLOCAINE 1%/SOD BICARB 20 ML VIAL INFIL ONE (12:19)
[2022-02-06 13:14] LABS: Appearance Urine Clear (Clear); Bacteria Urine Automated Negative (Negative); Bilirubin Urine Negative (Negative); Blood Urine Negative (Negative); Color Urine Yellow; Epithelial Cell Urine Auto 20-30 /lpf (0-5); Glucose Urine UA Negative (Negative); Ketones Urine Negative (Negative); Leukocyte Esterase Urine Negative (Negative); Nitrite Urine Negative (Negative); Protein Urine Trace (Negative); RBC Urine Automated 0-4 /hpf (0-4); Specific Gravity Urine 1.022 (1.000-1.030); Urobilinogen Urine Negative (Negative)
--- NOTE | 2022-02-06 15:30 | History & Physical Report ---
Date of Service February 06, 2022 Assessment & Plan (1) COVID-19: Plan: -Admit to medicine -Patient currently afebrile, hemodynamically stable, and stable on RA -Can continue to monitor and treat symptomatically for now -Is not vaccinated previously (2) Elevated troponin: Plan: -First troponin at 24.8, second at 30.6, no concerning ECG or symptoms -Brandon continue to trend for now, if troponin stays flat or downtrends then can stop trending -If Troponin increases dramatically, ECG changes, or concerning symptoms then will consult cardiology (3) CAD (coronary artery disease): Plan: -BEAN [employer]ER, and antihypertensives (4) Hypercholesteremia: Plan: -BE[employer] atorvastatin (5) Hypertension: Plan: -BE[employer] antihypertensives (6) Ischemic cardiomyopathy: Plan: -See above (7) Implantation of internal cardiac defibrillator: Plan: -see above (8) Benign prostatic hyperplasia with urinary obstruction: Plan: -BE[employer] flomax (9) CKD (chronic kidney disease), stage III: Plan: -At baseline kidney function (10) Anemia: Plan: -Patient has history of SEVERINO, but not prescribed ferrous sulfate -MCV is elevated -Can consider restarting while admitted and discharging back on therapy (11) Patient taking statin medication prior to hospitalization for ischemic s troke: Plan: -BE[employer] aspirin and plavix Plan The patient was discussed with Dr. 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 History obtained from the patient and his sitting bedside. They state that he has been experiencing progressive weakness, body aches, and cough over the past few days. The patient has not had covid-19 in the past, denies recent contacts, and is NOT vaccinated. He denies brining anything up with his cough, fevers, chills, chest pain, nausea, vomiting, diarrhea, and recent falls. Of note, his states that his left leg has started to swell over the past few days. Allergies Allergy/AdvReac Type Severity Reaction Status Date / Time doxycycline Allergy Unknown Verified 02/04/22 09:41 levofloxacin Allergy Unknown Verified 02/04/22 09:41 Home Medications Medication Instructions Recorded Confirmed Type aspirin 81 mg tablet,delayed 81 mg PO DAILY #30 tabs 01/12/19 02/06/22 Rx release (Adult Low Dose Aspirin) Lactobacillus acidophilus 1 1,000 mmu cells PO DAILY 02/19/19 02/06/22 History billion cell tablet cholecalciferol (vitamin D3) 25 1,000 unit PO DAILY 02/19/19 02/06/22 History mcg (1,000 unit) capsule multivitamin (Daily Multi-Vitamin 1 tab PO DAILY 02/19/19 02/06/22 History tablet) polyethylene glycol 3350 17 gram 17 g PO DAILY 02/19/19 02/06/22 History oral powder packet (Miralax) docusate sodium 100 mg capsule 100 mg PO DAILY 05/17/20 02/06/22 History (Colace) mometasone 0.1 % topical solution 1 applic topical DAILY PRN skin 02/16/21 02/06/22 Rx irritation #60 mL nitroglycerin 0.4 mg sublingual 0.4 mg sublingual Q5M PRN chest 02/26/21 02/06/22 Rx tablet pain #30 tabs amoxicillin 500 mg capsule 2,000 mg PO ONCE 0 days #16 caps 06/07/21 02/06/22 Rx carvedilol 12.5 mg tablet 12.5 mg PO BID #60 tabs 11/08/21 02/06/22 Rx tamsulosin 0.4 mg capsule (Flomax) 0.4 mg PO QPM #90 caps 12/03/21 02/06/22 Rx sulfamethoxazole 800 1 tab PO BID PRN .. 02/04/22 02/06/22 History mg-trimethoprim 160 mg tablet (Bactrim DS) atorvastatin 40 mg tablet 40 mg PO HS 02/06/22 02/06/22 History clopidogrel 75 mg tablet 75 mg PO QPM 02/06/22 02/06/22 History dutasteride 0.5 mg capsule 0.5 mg PO QPM 02/06/22 02/06/22 History Past Med/Surg History Medical History Actinic keratosis Acute myocardial infarction Acute pancreatitis Anemia Anemia Benign prostate hyperplasia Bladder pain Cardiomyopathy Chest pain Coronary artery arteriosclerosis Elevated prostate specific antigen (PSA) Frequency of micturition History of Clostridium difficile infection History of malignant melanoma Hx of pancreatitis Hx of rosacea Insomnia Left ventricular thrombosis Microscopic hematuria Nocturia 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 Stroke syndrome Surgical History History of cardiac cath History of transurethral resection of prostate Hx of cholecystectomy Hx of melanoma excision Hx of prostatectomy Family History Father Acute myocardial infarction Mother Gastric cancer Brother Laryngeal cancer Social History Smoking Status: Never smoker Second Hand Exposure: No; Hx Alcohol Use: No Hx Substance Use: No Preferred Language: Frisian Communication Ability: Effective Bleach Boiler Packer Required: No Beliefs That Will Affect Care: None Current Living Situation: Spouse Feels Safe at Home: Yes caffeine: Yes Seatbelt Use: always Assistive Devices: None Review of Systems Constitutional: as per Subjective / HPI Eyes: no problem reported Ear, Nose, Mouth, Throat: no dizziness, no nasal congestion, no sore throat and no dysphagia Respiratory: + cough and + dyspnea; no hemoptysis, no pain on inspiration, no pain with cough and no sputum production Cardiovascular: no chest pain and no radiating jaw, neck or arm pain Gastrointestinal: no abdominal pain, no nausea and no vomiting Genitourinary: no dysuria or no hematuria Musculoskeletal: as per Subjective / HPI Integumentary: no rash Neurologic: no headache(s) and no confusion Psychiatric: as per Subjective / HPI Allergy / Immunological: no rash Physical Exam Constitutional: WD/WN, vitals as above Eyes: PERRL, conjunctivae normal, anicteric sclerae ENMT: external ear and nose normal, oropharynx normal Neck: trachea midline, no thyromegaly Respiratory: In no respiratory distress, symmetrical chest expansion, CTA throughout Cardiovascular: RRR, no murmurs noted, patient with left lower extremity swelling compare to right Gastrointestinal (Abdomen): normal bowel sounds, soft, nontender, no hepatosplenomegaly Musculoskeletal: Patient without signs of trauma Neurologic: Patient at baseline left sided-weakness, CNII-XII tested and intact, no tremors Psychiatric: A+Ox3, euthymic affect Results & Data Results & Data ([facility]) Vital Signs (Past 12 Hours) Vital Signs Temp Pulse Resp BP Pulse Ox O2 Del Method 02/06/22 14:30 123/76 02/06/22 14:00 123/68 02/06/22 13:30 127/67 02/06/22 13:00 101/65 02/06/22 12:46 114/77 02/06/22 12:30 113/70 02/06/22 12:00 80 22 114/68 02/06/22 12:00 114/68 02/06/22 11:30 89 25 H 117/72 02/06/22 11:36 37.2 C 02/06/22 11:00 87 27 H 93 Room Air 02/06/22 11:00 120/67 02/06/22 10:30 90 26 H 91 Room Air 02/06/22 10:30 132/72 02/06/22 10:00 91 H 30 H 94 Room Air 02/06/22 10:00 130/73 02/06/22 09:51 93 H 22 95 Room Air 02/06/22 09:15 94 Room Air 02/06/22 09:15 Room Air 02/06/22 09:15 Room Air 02/06/22 08:45 37.8 C H 110 H 20 141/72 H 96 Laboratory Results Abnormal lab results 02/06/22 02/06/22 02/06/22 Range/Units 09:36 09:36 09:44 WBC 3.44 L (4.8-10.8) K/ul RBC 3.66 L (4.63-6.08) M/uL Hgb 12.8 L (14.0-18.0) g/dl Hct 37.9 L (40.1-51.0) % MCV 103.6 H (80.0-100.0) fL MCH 35.0 H (25.0-34.0) pg RDW Coeff of Mitzy 11.4 L (11.5-14.5) % Plt Count 110 L (130-400) K/uL Lymph # (Auto) 0.22 L (1.2-3.4) K/uL Glucose 103 H (70-99(Fasting)) mg/dl Troponin I High Sens 24.8 H (0-20) pg/ml Urine Protein (Negative) U Epithel Cells (Auto) (0-5) /lpf SARS-CoV-2 (PCR) POSITIVE A* (Negative) 02/06/22 02/06/22 Range/Units 11:53 12:45 WBC (4.8-10.8) K/ul RBC (4.63-6.08) M/uL Hgb (14.0-18.0) g/dl Hct (40.1-51.0) % MCV (80.0-100.0) fL MCH (25.0-34.0) pg RDW Coeff of Mitzy (11.5-14.5) % Plt Count (130-400) K/uL Lymph # (Auto) (1.2-3.4) K/uL Glucose (70-99(Fasting)) mg/dl Troponin I High Sens 30.6 H (0-20) pg/ml Urine Protein Trace H (Negative) U Epithel Cells (Auto) 20-30 H (0-5) /lpf SARS-CoV-2 (PCR) (Negative) Diagnostic Findings Chest X-Ray 02/06/22 08:54 XR chest 1V portable CLINICAL HISTORY: Chest Pain TECHNIQUE: Single frontal radiograph of the chest was obtained. Comparison: Comparison is made to chest radiograph 09/26/2021 FINDINGS: Pacemaker defibrillator is seen. The cardiomediastinal silhouette is normal. The lungs are clear. No evidence of pleural effusion or pneumothorax. IMPRESSION: No acute chest disease. ACT 112: Negative or not required by law. Electronically signed by: Jhonathan Fournier M.D. 02/06/2022 9:26 AM ECG Additional Comments: Poor data quality, interpretation may be adversely affected Sinus tachycardia Possible Left atrial enlargement Low voltage QRS Inferior infarct (cited on or before 23-SEP-2010) Anterolateral infarct (cited on or before 23-SEP-2010) Abnormal ECG When compared with ECG of 17-MAY-2020 22:33, T wave inversion less evident in Lateral leads Code Status & VTE Plan Code Status Full code VTE Prophylaxis Plan VTE Prophylaxis will be ordered: Yes Supervising Physician Co-Signing Physician Notes Reviewed documentation and discussed case with ALLISON. Agree with his note above. Patient here with a mildly elevated troponin, tested positive for COVID-19. Afebrile, hemodynamic stable, not hypoxic. Minimally elevated troponin, continue to trend. Treatment as noted above. PG Care Time/CCT Total # of Minutes Spent Total Time Spent with Patient: Total time spent is greater than 50% in coordination of care (as documented) at patient's floor/unit and/or counseling patient: [place] [address] Initial Inpt Care Lvl 1 (25 - SIGNIFICANT, SEPARATELY IDENTIFIABLE ) Patient Type Established Medical Decision Making Moderate Complexity Diagnoses COVID-19 U07.1 Elevated troponin R77.8 CAD (coronary artery disease) I25.10 Hypercholesteremia E78.00 Hypertension I10 Ischemic cardiomyopathy I25.5 Implantation of internal cardiac defibrillator Z95.810 Benign prostatic hyperplasia with urinary obstruction N40.1; N13.8 CKD (chronic kidney disease), stage III N18.3 Anemia D64.9 Patient taking statin medication prior to hospitalization for ischemic stroke
[2022-02-06] MEDS ORDERED: ALBUTEROL 0.083% NEBU SOLN 3 ML VIAL NEB PRN (16:17)
[2022-02-06] MEDS ORDERED: guaiFENesin SUGAR FREE 200 MG/10 ML UDC PO PRN (16:17)
--- NOTE | 2022-02-06 18:10 | Ultrasound Report ---
US venous doppler LE LT CLINICAL HISTORY: Left lower extremity swelling. Covid positive. COMPARISON: None available at the time of this dictation. TECHNIQUE: Left lower extremity real-time compression venous ultrasound with Color Doppler imaging. Utilizing real-time ultrasonic imaging multiple real time high-resolution ultrasonic images with comp ression and noncompression maneuvers of the deep venous system in addition to color doppler imaging w ere performed from the common femoral vein through the proximal calf veins. FINDINGS: Currently there is normal compressibility of the deep venous system from the common femoral vein thro ugh the proximal calf veins. No current evidence of acute thrombosis is identified. Impression: 1. No evidence of deep venous thrombus. ACT 112: Negative or not required by law. Electronically signed by: Rahul Paredes M.D. 02/06/2022 6:08 PM
[2022-02-06] MEDS ORDERED: Patient's HEIGHT &/or WEIGHT Needed SCH (18:15)
[2022-02-06] MEDS: ACETAMINOPHEN 325 MG TAB PO PRN (19:24)
[2022-02-06] MEDS ORDERED: ENOXAPARIN INJ 40 MG/0.4 ML SYR SQ SCH (19:30)
[2022-02-06] MEDS: carvediloL 12.5 MG TAB PO SCH (20:08)
[2022-02-06] MEDS ORDERED: TAMSULOSIN HCL 0.4 MG CAP PO SCH (21:00)
[2022-02-06] MEDS: AVODART-ORDER AWAITING ACTION SCH (23:04)
[2022-02-07] MEDS: ACETAMINOPHEN 325 MG TAB PO PRN (02:23)
[2022-02-07 08:29] LABS: Creatinine Clr Calc Pharmacy 53.2 ml/min; Est GFR (African American) 68.8 ml/min; Est GFR (Non-African American) 59.4 ml/min
[2022-02-07] MEDS ORDERED: CHOLECALCIFEROL 1,000 UNITS 25 MCG TAB PO SCH (09:00)
[2022-02-07] MEDS ORDERED: ASPIRIN 81 MG ECTAB PO SCH (09:00)
[2022-02-07] MEDS ORDERED: CLOPIDOGREL BISULFATE 75 MG TAB PO SCH (09:00)
[2022-02-07] MEDS ORDERED: ATORVASTATIN 40 MG TAB PO SCH (09:00)
[2022-02-07] MEDS: AVODART-ORDER AWAITING ACTION SCH (09:01)
[2022-02-07] MEDS: carvediloL 12.5 MG TAB PO SCH (09:03)
--- NOTE | 2022-02-07 13:29 | Discharge Summary ---
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 History obtained from the patient and his sitting bedside. They state that he has been experiencing progressive weakness, body aches, and cough over the past few days. The patient has not had covid-19 in the past, denies recent contacts, and is NOT vaccinated. He denies brining anything up with his cough, fevers, chills, chest pain, nausea, vomiting, diarrhea, and recent falls. Of note, his states that his left leg has started to swell over the past few days. Principal Diagnosis 1. COVID-19 2. Elevated troponin secondary to myocardial demand ischemia Discharge Exam GENERAL: 82 yo Well-developed, well-nourished WM. NAD. LUNGS: Clear to auscultation bilaterally. Bibasilar crackles. CARDIOVASCULAR: Regular rate and rhythm. ABDOMEN: Soft, non-tender and non-distended. BS normoactive x 4 quad. EXTREMITIES: No edema. Non-tender. Peripheral pulses +2/4. NEUROLOGIC: A&O x3. Nonfocal PSYCHIATRIC: Cooperative. Appropriate mood and affect. SKIN: Warm, dry, intact. No rashes or lesions. Discharge Data Allergies Allergy/AdvReac Type Severity Reaction Status Date / Time doxycycline Allergy Unknown Verified 02/04/22 09:41 levofloxacin Allergy Unknown Verified 02/04/22 09:41 Consultations 02/06/22 13:47 ED Decision to Admit Stat Ordered Studies Chest X-Ray 02/06/22 08:54 XR chest 1V portable CLINICAL HISTORY: Chest Pain TECHNIQUE: Single frontal radiograph of the chest was obtained. Comparison: Comparison is made to chest radiograph 09/26/2021 FINDINGS: Pacemaker defibrillator is seen. The cardiomediastinal silhouette is normal. The lungs are clear. No evidence of pleural effusion or pneumothorax. IMPRESSION: No acute chest disease. ACT 112: Negative or not required by law. Electronically signed by: Jhonathan Fournier M.D. 02/06/2022 9:26 AM Venous Doppler Study 02/06/22 16:15 US venous doppler LE LT CLINICAL HISTORY: Left lower extremity swelling. Covid positive. COMPARISON: None available at the time of this dictation. TECHNIQUE: Left lower extremity real-time compression venous ultrasound with Color Doppler imaging. Utilizing real-time ultrasonic imaging multiple real time high-resolution ultrasonic images with compression and noncompression maneuvers of the deep venous system in addition to color doppler imaging were performed from the common femoral vein through the proximal calf veins. FINDINGS: Currently there is normal compressibility of the deep venous system from the common femoral vein through the proximal calf veins. No current evidence of acute thrombosis is identified. Impression: 1. No evidence of deep venous thrombus. ACT 112: Negative or not required by law. Electronically signed by: Rahul Paredes M.D. 02/06/2022 6:08 PM Hospital Course (1) COVID-19: -Admitted to tele -Patient currently afebrile, hemodynamically stable, and stable on RA -Not previously vaccinated -pt not candidate for any inpatient covid treatment given his mild sx and not hypoxic -plan to d/c home today in care of on Paxlovid + Decadron * while on Paxlovid, must hold Tamsulosin and steroid cream * Of note, Plavix will not effective x 5 days while he is on Paxlovid but he is also on ASA (2) Elevated troponin: -First troponin at 24.8, second at 30.6, no concerning ECG or symptoms, last HS trop 35.5 -No significant changes, therefore no further trending of HS trop is necessary -Elevation likely represents myocardial demand ischemia in setting of covid-19 infection as he is asymptomatic w/o EKG changes (3) CAD (coronary artery disease): -Continue home medications (ASA, Coreg, statin) (4) Hypercholesteremia: -Continue Atorvastatin (5) Hypertension: -Well controlled, continue Coreg (6) Ischemic cardiomyopathy: -s/p AICD (7) Benign prostatic hyperplasia with urinary obstruction: -HOLD Flomax while on Paxlovid, may resume when completed with therapy -Continue Proscar (8) CKD (chronic kidney disease), stage III: -At baseline kidney function -Paxlovid will be rx'd at [facility] reduced dose (9) Anemia: -Patient has history of SEVERINO, but not prescribed ferrous sulfate -o/p follow up (10) Patient taking statin medication prior to hospitalization for ischemic stroke: -ARTIST CONSULTANT aspirin and plavix Plan Patient is medically and hemodynamically stable for discharge home with plan as outlined above. Rx for Decadron and Paxlovid has been sent to pharmacy on file. Instructions for holding Flomax and steroid cream in instructions below. Pt to follow up with pcp within 1 week of discharge. Encouraged rest and hydration. APAP as needed for aches/fever. Follow cdc/[facility] guidelines on isolation. Plan has been d/w Dr. Rae who is in agreement. Total Time Total Time Spent Total Time Spent (In Minutes): >30 minutes Discharge Plan Discharge Items Patient Disposition: Home - Self-Care Reason For Visit: SOB, COVID +, ELEVATED TROP Discharge Diagnosis: covid-19 Activity: Resume your previous activity Activity Comment: get plenty of rest Non-emergency contact: Primary Care Provider Call non-emergency contact if: you have any medication questions Follow-up/Referrals: Dana Aquino CRNP [Primary Care Provider] - Diet: Heart Healthy Addtl Attending Provider Instructions: You were hospitalized due to COVID-19 infection. Fortunately, your symptoms are mild and you are not requiring oxygen. For that reason, you do not meet criteria to receive any IV medications in the hospital. However, due to your heart/stroke history, you are considered a higher risk patient for complications from COVID and therefore will be placed on an antiviral medication called Paxlovid in addition to a steroid called Decadron. Please take both of these medications as prescribed. Take the steroid first thing in the morning with something to eat. While taking Paxlovid, it is very important that you STOP TAKING your Tamsulosin that you take for enlarged prostate. Please HOLD this medication for the 5 days that you are on the Paxlovid. You may RESUME the medication once you are done taking the Paxlovid. Upon returning home, it is important you get plenty of rest. You may feel weak and tired which is a normal effect from the viral infection. You may use Tylenol as needed for aches or fever. It is advised that you follow up with your healthcare provider within 1 week of discharge. Please follow all cdc/health department guidelines for isolation to reduce s preading the virus to others. If you have any questions once you are discharged, you may contact the nonemergency number listed on your discharge paperwork. In the event of a medical emergency, call 911. Pending Studies at Discharge: No Stand-Alone Forms: My [facility], Smoking Cessation Medications and DC Order Prescriptions: New Paxlovid (EUA) 150-100 mg tablets,dose pack See Rx Instructions .ROUTE .COMPLEX Qty: 1 0RF Rx Instructions: take ONE 150 mg tablet of nirmatrelvir with ONE 100 mg tablet of ritonavir twice daily for 5 days dexamethasone [Decadron] 6 mg tablet 6 mg PO DAILY Qty: 10 0RF Continued amoxicillin 500 mg capsule 2,000 mg PO ONCE Qty: 16 1RF Rx Instructions: Take four capsules by mouth one hour before procedure or as directed. carvedilol 12.5 mg tablet 12.5 mg PO BID Qty: 60 0RF aspirin [Adult Low Dose Aspirin] 81 mg tablet,delayed release (DR/EC) 81 mg PO DAILY Qty: 30 2RF multivitamin [Daily Multi-Vitamin] tablet 1 tab PO DAILY Label Comments: confirm if patient is still taking this medication nitroglycerin 0.4 mg tablet, sublingual 0.4 mg sublingual Q5M PRN (Reason: chest pain) Qty: 30 3RF Rx Instructions: do not exceed 3 doses per episode Lactobacillus acidophilus 1 billion cell tablet 1,000 mmu cells PO DAILY Label Comments: confirm if patient is still taking this medication docusate sodium [Colace] 100 mg Capsule 100 mg PO DAILY polyethylene glycol 3350 [Miralax] 17 gram powder in packet 17 g PO DAILY Label Comments: Dissolve and mix 1 cap full in 8oz of water, juice, or tea cholecalciferol (vitamin D3) 1,000 unit capsule 1,000 unit PO DAILY Label Comments: Confirm if patient is still taking this medication atorvastatin 40 mg tablet 40 mg PO HS clopidogrel 75 mg tablet 75 mg PO QPM dutasteride 0.5 mg capsule 0.5 mg PO QPM Discontinued tamsulosin [Flomax] 0.4 mg capsule 0.4 mg PO QPM Qty: 90 1RF Rx Instructions: Take one capsule at bedtime. mometasone 0.1 % solution 1 applic TOP DAILY PRN (Reason: skin irritation) Qty: 60 1RF Rx Instructions: Apply to areas of the trunk and extremities 1-2 times daily for up to 2 weeks as needed. sulfamethoxazole-trimethoprim [Bactrim DS] 800-160 mg tablet 1 tab PO BID PRN (Reason: ..) Discharge Orders: Discharge Order (Routine); Ordered 02/07/22 Ordered By: Josefa Lim Admission Data Admit Date/Time: 02/06/22 15:39 Attending Provider: Darren Rae Admit Provider: Felix Adam Primary Care Provider: Dana Aquino Other Providers: Felix Adam Other Interventions: Discharge Summary Assessment (RN) Last Done: 02/07/22 13:32 Coding Level of Care Code D/C DAY MANAGEMENT >30 MINS Diagnoses COVID-19 U07.1 Elevated troponin R77.8 CAD (coronary artery disease) I25.10 Hypercholesteremia E78.00 Hypertension I10 Ischemic cardiomyopathy I25.5 Benign prostatic hyperplasia with urinary obstruction N40.1; N13.8 CKD (chronic kidney disease), stage III N18.3 Anemia D64.9 Patient taking statin medication prior to hospitalization for ischemic stroke
--- NOTE | 2022-02-08 05:29 | Electrocardiogram Report ---
Test Reason : Blood Pressure : / mmHG Vent. Rate : 101 BPM Atrial Rate : 101 BPM P-R Int : 146 ms QRS Dur : 106 ms QT Int : 356 ms P-R-T Axes : 024 015 163 degrees QTc Int : 461 ms Poor data quality, interpretation may be adversely affected Sinus tachycardia Possible Left atrial enlargement Low voltage QRS Inferior infarct (cited on or before 23-SEP-2010) Anterolateral infarct (cited on or before 23-SEP-2010) T wave abnormality, consider lateral ischemia Abnormal ECG When compared with ECG of 17-MAY-2020 22:33, T wave inversion less evident in Anterolateral leads Confirmed by Jose Sampson ([id number]) on 02/08/2022 5:28:54 AM Referred By: REFERRED SELF Confirmed By:Jose Sampson
== END 2022-02-07 14:19 | disposition home or self-care (01) ==
LOC: ED 08:38 → INTOOBSV 15:39 → SUATTDRO 15:39 → EDINP 15:39 → 2S 02-07 06:43